=== PATIENT | male | born 1950 | race Caucasian/White ===

== ENCOUNTER → 2018-10-12 07:50 | Outpatient (CLI) | payer MEDICARE, OTHER, SELFPAY ==
[2018-10-12 09:14] LABS: Add Manual Diff / Slide Review NO; Basophils Absolute Auto 0 /uL (0-100); Basophils Percent Auto 0.6 % (0-2); Eosinophils Absolute Auto 200 /uL (0-450); Eosinophils Percent Auto 6.5 % (2-4); Hematocrit 43.4 % (41-53); Hemoglobin 14.8 g/dL (13.5-17.5); Lymphocytes Absolute Auto 1200 /uL (1100-4500); Lymphocytes Percent Auto 36.4 % (25-40); Mean Corpuscular HGB Conc 34.1 % (30-36); Mean Corpuscular Hemoglobin 32.3 PG (26-34); Mean Corpuscular Volume 94.7 fL (80-100); Monocytes Absolute Auto 400 /uL (0-900); Monocytes Percent Auto 11.5 % (3-14); Neutrophils Absolute Auto 1500 /uL (1500-7000); Platelet Count 207 X10^3/uL (150-400); Red Blood Cell Count 4.58 X10^6/uL (4.5-5.9); Red Cell Distribution Width 12.7 % (11.6-14.8); White Blood Cell Count 3.4 X10^3/uL (4.5-11.0)
[2018-10-12 09:37] LABS: Alanine Aminotransferase 49 IU/L (21-72); Albumin 4.3 g/dL (3.5-5.0); Albumin Globulin Ratio 1.5 (1.0-2.8); Alkaline Phosphatase 75 U/L (38-126); Aspartate Aminotransferase 40 IU/L (17-59); BUN Creatinine Ratio 21.4 (6-22); Bilirubin Total 0.7 mg/dL (0.2-1.3); Blood Urea Nitrogen 15 mg/dL (9-20); Calcium 9.5 mg/dL (8.4-10.2); Carbon Dioxide 30 mmol/L (22-32); Chloride 101 mmol/L (98-107); Cholesterol 277 mg/dL (140-199); Estimated Glomerular Filt Rate > 60.0 mL/min (>60); Globulin 2.9 g/dL (1.7-4.1); Glucose 103 mg/dL (80-110); HDL Cholesterol 70 mg/dL (40-60); HEMOLYSIS < 15 (0-50); LDL Cholesterol Calculated 189 mg/dL (<100); Sodium 138 mmol/L (137-145); Total Protein 7.2 g/dL (6.3-8.2); Triglycerides 92 mg/dL (35-150)
[2018-10-12 09:53] LABS: Potassium 5.4 mmol/L (3.4-5.1)
[2018-10-12 10:05] LABS: Prostate Specific Antigen Scrn 0.526 ng/mL (0.1-4.0)
[2018-10-14 14:50] LABS: Fecal Immunochemical Test NOT DETECTED (NOT DETECTED)
== END ==
PROVIDERS: PCP Family Medicine; Visit Provider Family Medicine
DX: Z12.11 Encounter for screening for malignant neoplasm of colon (principal); Z13.1 Encounter for screening for diabetes mellitus; Z12.5 Encounter for screening for malignant neoplasm of prostate; Z13.220 Encounter for screening for lipoid disorders; Z72.0 Tobacco use
CPT/HCPCS: 36415; 80053; 80061; 82274; 85025; G0103

== ENCOUNTER → 2019-04-20 07:20 | Outpatient (CLI) | payer MEDICARE, OTHER, SELFPAY ==
[2019-04-20 08:08] LABS: Alanine Aminotransferase 47 IU/L (21-72); Albumin 4.3 g/dL (3.5-5.0); Albumin Globulin Ratio 1.3 (1.0-2.8); Alkaline Phosphatase 72 U/L (38-126); Aspartate Aminotransferase 44 IU/L (17-59); Bilirubin Total 0.7 mg/dL (0.2-1.3); Blood Urea Nitrogen 15 mg/dL (9-20); Calcium 9.5 mg/dL (8.4-10.2); Carbon Dioxide 31 mmol/L (22-32); Chloride 101 mmol/L (98-107); Cholesterol 190 mg/dL (140-199); Estimated Glomerular Filt Rate > 60.0 mL/min (>60); Globulin 3.3 g/dL (1.7-4.1); Glucose 99 mg/dL (80-110); HDL Cholesterol 66 mg/dL (40-60); HEMOLYSIS < 15 (0-50); LDL Cholesterol Calculated 108 mg/dL (<100); Potassium 4.5 mmol/L (3.4-5.1); Sodium 138 mmol/L (137-145); Total Protein 7.6 g/dL (6.3-8.2); Triglycerides 82 mg/dL (35-150)
== END ==
PROVIDERS: PCP Family Medicine; Visit Provider Family Medicine
DX: E78.5 Hyperlipidemia, unspecified (principal)
CPT/HCPCS: 36415; 80053; 80061

== ENCOUNTER → 2019-07-08 10:21 | Outpatient (CLI) | payer MEDICARE, OTHER, SELFPAY ==
--- NOTE | 2019-07-08 10:23 | DI.RAD.S_ITS ---
PROCEDURE: XR LUMBAR SPINE MIN 4V INDICATIONS: Fall off ladder, lumbar spinal pain TECHNIQUE: 5 views of the lumbar spine were acquired. COMPARISON: None. FINDINGS: Bones: 5 nonrib-bearing vertebrae are present. There is abnormal bony alignment, with grade 2 anterolisthesis of L5 on S1, chronicity uncertain due to absence of comparison films. No vertebral body compression fractures. No suspicious bony lesions. Note is made of moderate degenerative disc disease and facet osteoarthritis along the lumbosacral spine most prominent at L4-5 and especially L5-S1. Soft tissues: Overlying bowel gas pattern is normal. No suspicious soft tissue calcifications. Oblique images: No pars defects. IMPRESSION: The grade 2 anterolisthesis of L5 on S1 statistically is most likely chronic, and is associated with moderately severe degenerative disc disease and facet osteoarthritis. Radiographically this is considered most likely chronic, and due to ligamentous laxity. No fracture is found. Dictated by: Randy Junior M.D. on 07/08/2019 at 11:29 Approved by: Randy Junior M.D. on 07/08/2019 at 11:31
== END ==
PROVIDERS: PCP Family Medicine; Visit Provider Nurse Practitioner
DX: M54.5 Low back pain (principal); M43.17 Spondylolisthesis, lumbosacral region; M51.36 Other intervertebral disc degeneration, lumbar region; M51.37 Other intervertebral disc degeneration, lumbosacral region; M47.816 Spondylosis without myelopathy or radiculopathy, lumbar region; M47.817 Spondylosis without myelopathy or radiculopathy, lumbosacral region
CPT/HCPCS: 72110

== ENCOUNTER → 2020-06-20 14:17 | Outpatient (CLI) | payer MEDICARE, OTHER, SELFPAY ==
[2020-06-20 15:41] LABS: Add Manual Diff / Slide Review NO; Basophils Absolute Auto 0 /uL (0-100); Basophils Percent Auto 0.7 % (0-2); Eosinophils Absolute Auto 300 /uL (0-450); Eosinophils Percent Auto 7.8 % (2-4); Hematocrit 42.2 % (41-53); Hemoglobin 14.3 g/dL (13.5-17.5); Lymphocytes Absolute Auto 1500 /uL (1100-4500); Lymphocytes Percent Auto 35.7 % (25-40); Mean Corpuscular HGB Conc 33.8 % (30-36); Mean Corpuscular Hemoglobin 32.3 PG (26-34); Mean Corpuscular Volume 95.5 fL (80-100); Monocytes Absolute Auto 400 /uL (0-900); Monocytes Percent Auto 8.5 % (3-14); Neutrophils Absolute Auto 2000 /uL (1500-7000); Neutrophils Percent Auto 47.3 % (50-75); Platelet Count 194 X10^3/uL (150-400); Red Blood Cell Count 4.42 X10^6/uL (4.5-5.9); Red Cell Distribution Width 12.8 % (11.6-14.8); White Blood Cell Count 4.3 X10^3/uL (4.5-11.0)
[2020-06-20 16:12] LABS: Alanine Aminotransferase 55 IU/L (<50); Albumin 4.1 g/dL (3.5-5.0); Albumin Globulin Ratio 1.4 (1.0-2.8); Alkaline Phosphatase 91 U/L (38-126); Aspartate Aminotransferase 45 IU/L (17-59); BUN Creatinine Ratio 26.1 (6-22); Bilirubin Total 0.6 mg/dL (0.2-1.3); Blood Urea Nitrogen 18 mg/dL (9-20); Calcium 9.4 mg/dL (8.4-10.2); Carbon Dioxide 33 mmol/L (22-32); Chloride 104 mmol/L (98-107); Estimated Glomerular Filt Rate > 60.0 mL/min (>60); Globulin 2.9 g/dL (1.7-4.1); Glucose 62 mg/dL (80-110); HEMOLYSIS < 15 (0-50); Potassium 4.6 mmol/L (3.4-5.1); Sodium 140 mmol/L (137-145)
== END ==
PROVIDERS: PCP Family Medicine; Referring Provider Family Medicine; Visit Provider Family Medicine
DX: R13.10 Dysphagia, unspecified (principal)
CPT/HCPCS: 36415; 80053; 85025

== ENCOUNTER → 2020-06-30 12:30 | Outpatient (CLI) | payer MEDICARE, OTHER, SELFPAY ==
--- NOTE | 2020-06-30 12:31 | DI.RAD.S_ITS ---
PROCEDURE: FL BARIUM SWALLOW INDICATIONS: trouble swallowing, smoker for >50 years COMPARISON: [facility], CR, XR LUMBAR SPINE MIN 4V, 07/08/2019, 10:26. FINDINGS: Function: There is moderate esophageal dysmotility. Mild gastroesophageal reflux. There is normal transit of a calibrated barium tablet through the esophagus into the stomach. Morphology: Air-contrast images demonstrate normal mucosal morphology. Single contrast views show no esophageal strictures, extrinsic mass effects, or diverticula. Limited images of the stomach demonstrate normal appearance. IMPRESSION: 1. Moderate esophageal dysmotility. 2. Mild gastroesophageal reflux. Dictated by: Josie Sheridan M.D. on 06/30/2020 at 13:24 Approved by: Josie Sheridan M.D. on 06/30/2020 at 13:25
== END ==
PROVIDERS: PCP Family Medicine; Referring Provider Family Medicine; Visit Provider Family Medicine
DX: R13.10 Dysphagia, unspecified (principal); K22.4 Dyskinesia of esophagus; K21.9 Gastro-esophageal reflux disease without esophagitis; F17.200 Nicotine dependence, unspecified, uncomplicated
CPT/HCPCS: 74220

== ENCOUNTER → 2021-11-14 07:10 | Outpatient (CLI) | payer MEDICARE, OTHER, SELFPAY ==
[2021-11-14 07:57] LABS: Add Manual Diff / Slide Review NO; Basophils Absolute Auto 0 /uL (0-100); Basophils Percent Auto 0.9 % (0-2); Eosinophils Absolute Auto 400 /uL (0-450); Eosinophils Percent Auto 10.1 % (2-4); Hematocrit 42.3 % (41-53); Hemoglobin 14.7 g/dL (13.5-17.5); Lymphocytes Absolute Auto 1200 /uL (1100-4500); Lymphocytes Percent Auto 29.8 % (25-40); Mean Corpuscular HGB Conc 34.8 % (30-36); Mean Corpuscular Hemoglobin 32.6 PG (26-34); Mean Corpuscular Volume 93.7 fL (80-100); Monocytes Absolute Auto 400 /uL (0-900); Neutrophils Absolute Auto 2000 /uL (1500-7000); Neutrophils Percent Auto 50.2 % (50-75); Platelet Count 189 X10^3/uL (150-400); Red Blood Cell Count 4.52 X10^6/uL (4.5-5.9)
[2021-11-14 08:19] LABS: Alanine Aminotransferase 31 IU/L (<50); Albumin 4.4 g/dL (3.5-5.0); Albumin Globulin Ratio 1.5 (1.0-2.8); Alkaline Phosphatase 72 U/L (38-126); Aspartate Aminotransferase 35 IU/L (17-59); BUN Creatinine Ratio 22.7 (6-22); Bilirubin Total 0.8 mg/dL (0.2-1.3); Blood Urea Nitrogen 17 mg/dL (9-20); Calcium 9.6 mg/dL (8.4-10.2); Carbon Dioxide 33 mmol/L (22-32); Chloride 104 mmol/L (98-107); Estimated Glomerular Filt Rate > 60 mL/min (>60); Glucose 105 mg/dL (80-110); HEMOLYSIS < 15 (0-50); Sodium 139 mmol/L (137-145); Total Protein 7.4 g/dL (6.3-8.2)
== END ==
PROVIDERS: PCP Family Medicine; Referring Provider Family Medicine; Visit Provider Family Medicine
DX: E78.5 Hyperlipidemia, unspecified (principal); R13.10 Dysphagia, unspecified
CPT/HCPCS: 36415; 80053; 85025

== ENCOUNTER → 2022-05-29 15:21 | Outpatient (CLI) | payer MEDICARE, OTHER, SELFPAY ==
--- NOTE | 2022-05-29 15:24 | DI.US.S_ITS ---
PROCEDURE: US ABD AORTA ANEURYSM SCREEN INDICATIONS: AAA SCREEN TECHNIQUE: Real time scanning was performed of the aorta and iliac arteries, with image documentation. COMPARISON: [facility], , ABDOMEN LIMITED, 09/15/2017, 8:40. FINDINGS: Aorta: Proximal aortic diameter measures 2.1 cm. Mid-aorta measures 1.9 cm. Distal aortic diameter is 1.7 cm. Iliac arteries: Right common iliac artery measures 1.2 cm. Left common iliac artery measures 1.2 cm. IMPRESSION: Negative for aneurysm. Dictated by: Jonn Rico M.D. on 05/29/2022 at 15:29 Approved by: Jonn Rico M.D. on 05/29/2022 at 15:30
== END ==
PROVIDERS: PCP Family Medicine; Referring Provider Family Medicine; Visit Provider Family Medicine
DX: Z72.0 Tobacco use (principal); Z13.6 Encounter for screening for cardiovascular disorders
CPT/HCPCS: 76706; C9803

== ENCOUNTER 2022-05-30 14:16 | Day surgery (SDC) | payer MEDICARE, OTHER, SELFPAY ==
--- NOTE | 2022-05-30 | PATH_ITS ---
[facility] Accession Number: [id number] . 01 Material submitted: . PART A: gastrointestinal site - ANTRUM BIOPSY PART B: esophagus, E-G Junction - GE JUNCTION BIOPSY . 01 Diagnosis: A. Stomach, Antrum, Biopsy: Antral mucosa with mild chronic gastritis. Negative for Helicobacter by immunohistochemistry. Negative for intestinal metaplasia. Negative for dysplasia and malignancy. . B. Gastroesophageal Junction, Biopsy: Squamocolumnar junctional mucosa with specialized intestinal metaplasia, consistent with Mccurdy's esophagus. Negative for dysplasia and malignancy. MRV 06/04/2022 1247 Local . 01 Electronically signed: . Ct Ferrari MD, Pathologist NPI- [id number] . 01 Gross description: . Part A: ANTRUM BIOPSY: Received in formalin are 4 fragment(s) of brock, soft tissue measuring 0.2 x 0.2 x 0.2 cm to 0.4 x 0.2 x 0.2 cm submitted entirely in 1 cassette(s) Part B: GE JUNCTION BIOPSY: Received in formalin are 4 fragment(s) of brock, soft tissue measuring 0.1 x 0.1 x 0.1 cm to 0.3 x 0.2 x 0.2 cm submitted entirely in 1 cassette(s) /DAILY 05/31/2022 1941 Local . 01 Microscopic: . A. An immunohistochemical stain was performed to evaluate for Helicobacter organisms and is negative. The control stain showed appropriate reactivity. . * This test was developed and its performance characteristics determined by [facility]. It has not been cleared or approved by the U.S. Food and Drug Administration. The FDA has determined that such clearance or approval is not necessary. This test is used for clinical purposes. It should not be regarded as investigational or for research. . 01 Pathologist provided ICD-10: R13.10, K22.70 . 01 CPT . 980192, 400488, I56772 Specimen Comment: A courtesy copy of this report has been sent to [phone] Performed at: [address] [id number] MD Rufino Solano MD Phone: [phone]
[2022-05-30 14:54] VITALS: BP 153/84; PULSE 82; RESP 18; TEMP 36.5; O2SAT 99; BMI 21.9
[2022-05-30] MEDS: LACTATED RINGERS 1,000 ML 200 ML IV (15:06)
--- NOTE | 2022-05-30 16:17 | PM.HP.1 ---
History of Present Illness History of Present Illness Date Patient Seen: 05/30/22 Time Patient Seen: 16:17 Chief complaint: SDC Narrative: Cecil is a 72-year-old man with dysphagia. He is here for his EGD today. His symptoms are the same as they were when I saw him several months ago in the office. 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 Sister Cancer Social History: household members spouse lives independently Yes Tobacco & Substance use: Smoking Status Current every day smoker alcohol intake current alcohol intake frequency 0-2 drinks per day Substance Use Type does not use Meds Home Medications and Allergies Home Medications Medication Instructions Recorded Confirmed Type atorvastatin 20 mg tablet 20 mg PO BEDTIME #90 tabs 06/14/21 05/30/22 Rx Allergies Allergy/AdvReac Type Severity Reaction Status Date / Time No Known Allergies Allergy Uncoded 05/30/22 14:49 Exam Vital Signs (past 8 hours): - 05/30/22 14:54 Temperature 97.7 F Pulse Rate 82 Respiratory Rate 18 Blood Pressure 153/84 H Pulse Oximetry 99 Oxygen Delivery Method Room Air Oxygen Delivery Method Room Air Const Nutritional Appearance: thin Resp Effort & Inspection: normal respiratory effort Assessment & Plan Assessment and plan (1) Dysphagia: Status: Acute Plan Plan for EGD with biopsy or possible balloon dilation. He understands the risks and wishes to proceed. Time Spent With Patient Critical Care time: I spent a total of [] minutes of critical care time on this patient's care today; this time is exclusive of procedural time.
--- NOTE | 2022-05-30 16:35 | PM.OP.EGD ---
Operative Date/Time/Diagnoses Date of procedure: 05/30/22 Time of procedure: 16:35 Pre-op diagnosis: Dysphagia Post-op diagnosis: same Procedure & Clinicians Study performed: Esophagogastroduodenoscopy Same procedure as scheduled: Yes Surgeon: Leon Jj Procedure Notes Procedure in detail: Surgeon: Leon Jj MD Anesthesia: Dr. Waite A timeout was performed. A bite blocked was placed. The patient was positioned in the left lateral decubitus position. Anesthesia was administered. The endoscope was inserted through the bite block and passed through the esophagus and stomach and into the duodenum. The duodenal mucosa appeared normal. The scope was withdrawn into the duodenal bulb and no abnormalities were noted. The scope was withdrawn into the stomach. The antrum demonstrated mild antritis and random biopsies were taken. The rest of the stomach was normal. The scope was retroflexed and a small hiatal hernia was noted. The scope was withdrawn into the esophagus and the Z-line was inspected the mucosa at the Z-line appeared somewhat irregular and biopsies were taken.. The remainder of the esophagus was normal. The scope was withdrawn. The patient was awakened and brought to recovery. Sedation time: 10 Findings: Irregular mucosa at the Z-line and antritis Post-procedure Recommendations: Will call with biopsy results Disposition: PACU
[2022-05-30 16:41] VITALS: BP 136/72; PULSE 72; PULSE 89; RESP 16; RESP 24; TEMP 36.5; O2SAT 98
[2022-05-30 16:44] VITALS: BP 135/72; PULSE 77; RESP 23; O2SAT 98
[2022-05-30 16:56] VITALS: BP 152/92; PULSE 76; RESP 18; TEMP 36.5; O2SAT 98
== END 2022-05-30 17:14 | disposition home or self-care (01) ==
PROVIDERS: PCP Family Medicine; Referring Provider Surgery; Visit Provider Surgery
PROC: 0DJ08ZZ Inspection of Upper Intestinal Tract, Via Natural or Artificial Opening Endoscopic (ICD-10-PCS; CPT 43235; principal; 2022-05-30 15:45)
DX: R13.10 Dysphagia, unspecified (principal); K29.50 Unspecified chronic gastritis without bleeding; K31.A0 Gastric intestinal metaplasia, unspecified
CPT/HCPCS: 43239; J2704; J3010

== ENCOUNTER 2022-09-05 06:50 | Day surgery (SDC) | payer MEDICARE, OTHER, SELFPAY ==
[2022-09-05 07:35] VITALS: BP 143/80; PULSE 76; RESP 16; TEMP 36; O2SAT 99; BMI 60.0
[2022-09-05] MEDS: LACTATED RINGERS 1,000 ML 42 ML IV (07:45)
--- NOTE | 2022-09-05 08:34 | PM.HP.1 ---
History of Present Illness History of Present Illness Date Patient Seen: 09/05/22 Time Patient Seen: 08:34 Chief complaint: SDC Narrative: Cecil is here for his esophageal dilation. Still having dysphagia. See prior office notes for details. 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 Sister Cancer Social History: household members spouse lives independently Yes Tobacco & Substance use: Smoking Status Current every day smoker alcohol intake current alcohol intake frequency 0-2 drinks per day Substance Use Type does not use Meds Home Medications and Allergies Home Medications Medication Instructions Recorded Confirmed Type atorvastatin 20 mg tablet 20 mg PO BEDTIME #90 tabs 06/14/21 09/05/22 Rx Allergies Allergy/AdvReac Type Severity Reaction Status Date / Time No Known Allergies Allergy Uncoded 09/05/22 07:28 Exam Vital Signs (past 8 hours): - 09/05/22 07:35 Temperature 96.8 F L Pulse Rate 76 Respiratory Rate 16 Blood Pressure 143/80 H Pulse Oximetry 99 Oxygen Delivery Method Room Air Oxygen Delivery Method Room Air Const General: No acute distress Resp Effort & Inspection: normal respiratory effort Assessment & Plan Assessment and plan (1) Dysphagia: Status: Acute Plan Osmel is here for his esophageal dilation. We reviewed the risks and benefits and he would like to proceed. Time Spent With Patient Critical Care time: I spent a total of [] minutes of critical care time on this patient's care today; this time is exclusive of procedural time.
[2022-09-05 08:47] VITALS: BMI 22.5
--- NOTE | 2022-09-05 08:58 | P.OP.EGD_ITS ---
Operative Date/Time/Diagnoses Date of procedure: 09/05/22 Time of procedure: 08:58 Pre-op diagnosis: Dysphagia Post-op diagnosis: same Procedure & Clinicians Study performed: Esophagogastroduodenoscopy Same procedure as scheduled: Yes Surgeon: Leon Jj Procedure Notes Procedure in detail: Surgeon: Leon Jj MD Anesthesia: Zenon Bacon CRNA A timeout was performed. A bite blocked was placed. The patient was positioned in the left lateral decubitus position. Anesthesia was administered. The endoscope was inserted through the bite block and passed through the esophagus and into the stomach and no abnormalities were seen. The rest of the stomach was normal. The scope was retroflexed and no abnormalities were seen. The scope was withdrawn into the esophagus and the moderate stricture was seen at the distal esophagus. Next, the balloon was inserted into the distal esophageal stricture. We inflated the balloon to 15 mm for greater than 30 seconds and deflated it. We then inflated the balloon to 16.5 mm for greater than 30 seconds and then deflated it again. Finally, we inflated to the full 18 mm for 60 seconds. The balloon was deflated and removed. There were 3 small tears in the narrowest part of the GE junction with a small amount blood visible. The r emainder of the esophagus was normal. The scope was withdrawn. The patient was awakened and brought to recovery. Sedation time: 10 minutes Findings: Moderate distal esophageal stricture Post-procedure Disposition: PACU
[2022-09-05 09:03] VITALS: BP 131/86; PULSE 86; RESP 20; TEMP 36.4; O2SAT 92
[2022-09-05 09:09] VITALS: BP 132/84; PULSE 85; RESP 16; O2SAT 95
== END 2022-09-05 09:44 | disposition home or self-care (01) ==
PROVIDERS: PCP Family Medicine; Referring Provider Surgery; Visit Provider Surgery
PROC: 0DJ08ZZ Inspection of Upper Intestinal Tract, Via Natural or Artificial Opening Endoscopic (ICD-10-PCS; CPT 43235; principal; 2022-09-05 08:15)
DX: R13.10 Dysphagia, unspecified (principal); K22.2 Esophageal obstruction; Y83.8 Other surgical procedures as the cause of abnormal reaction of the patient, or of later complication, without mention of misadventure at the time of the procedure
CPT/HCPCS: 43249; 43245

== ENCOUNTER → 2022-09-18 14:26 | Outpatient (CLI) | payer MEDICARE, OTHER, SELFPAY ==
--- NOTE | 2022-09-18 14:28 | DI.RAD.S_ITS ---
PROCEDURE: XR SHOULDER RT MIN 2V INDICATIONS: Shoulder pain TECHNIQUE: 3 views of the shoulder were acquired. COMPARISON: None. FINDINGS: Bones: Moderate degenerative changes of the acromioclavicular and glenohumeral joints. No displaced fracture. No dislocation. Soft tissues: No suspicious calcifications. IMPRESSION: Moderate degenerative changes. No acute radiographic abnormality. If there is high concern for further derangement, consider MRI evaluation. Dictated by: Samir Ortiz M.D. on 09/18/2022 at 16:27 Approved by: Samir Ortiz M.D. on 09/18/2022 at 16:28
== END ==
PROVIDERS: PCP Family Medicine; Referring Provider Nurse Practitioner Family; Visit Provider Nurse Practitioner Family
DX: S46.911A Strain of unspecified muscle, fascia and tendon at shoulder and upper arm level, right arm, initial encounter (principal); X58.XXXA Exposure to other specified factors, initial encounter
CPT/HCPCS: 73030

== ENCOUNTER → 2022-11-19 08:01 | Outpatient (CLI) | payer MEDICARE, OTHER, SELFPAY ==
[2022-11-19 08:56] LABS: Add Manual Diff / Slide Review NO; Basophils Absolute Auto 0 /uL (0-100); Basophils Percent Auto 0.4 % (0-2); Eosinophils Absolute Auto 400 /uL (0-450); Eosinophils Percent Auto 9.9 % (2-4); Hematocrit 42.3 % (41-53); Hemoglobin 14.5 g/dL (13.5-17.5); Lymphocytes Absolute Auto 1200 /uL (1100-4500); Lymphocytes Percent Auto 29.9 % (25-40); Mean Corpuscular HGB Conc 34.2 % (30-36); Mean Corpuscular Hemoglobin 31.7 PG (26-34); Mean Corpuscular Volume 92.7 fL (80-100); Monocytes Absolute Auto 400 /uL (0-900); Monocytes Percent Auto 10.1 % (3-14); Neutrophils Absolute Auto 2000 /uL (1500-7000); Neutrophils Percent Auto 49.7 % (50-75); Platelet Count 188 X10^3/uL (150-400); Red Blood Cell Count 4.56 X10^6/uL (4.5-5.9); Red Cell Distribution Width 13.9 % (11.6-14.8); White Blood Cell Count 4.1 X10^3/uL (4.5-11.0)
[2022-11-19 09:33] LABS: Alanine Aminotransferase 32 IU/L (<50); Albumin Globulin Ratio 1.3 (1.0-2.8); Alkaline Phosphatase 69 U/L (38-126); Aspartate Aminotransferase 34 IU/L (17-59); BUN Creatinine Ratio 26.5 (6-22); Bilirubin Total 0.8 mg/dL (0.2-1.3); Blood Urea Nitrogen 18 mg/dL (9-20); Calcium 9.2 mg/dL (8.4-10.2); Carbon Dioxide 33 mmol/L (22-32); Chloride 100 mmol/L (98-107); Cholesterol 249 mg/dL (140-199); Estimated Glomerular Filt Rate > 60 mL/min (>60); Glucose 100 mg/dL (80-110); HDL Cholesterol 61 mg/dL (40-60); HEMOLYSIS < 15 (0-50); LDL Cholesterol Calculated 155 mg/dL (<100); Potassium 5.1 mmol/L (3.4-5.1); Sodium 135 mmol/L (137-145); Triglycerides 166 mg/dL (35-150)
== END ==
PROVIDERS: PCP Family Medicine; Referring Provider Family Medicine; Visit Provider Family Medicine
DX: K22.70 Barrett's esophagus without dysplasia (principal); E78.5 Hyperlipidemia, unspecified
CPT/HCPCS: 36415; 80053; 80061; 85025

== ENCOUNTER → 2022-12-07 09:14 | Outpatient (CLI) | payer MEDICARE, OTHER, SELFPAY ==
--- NOTE | 2022-12-07 09:17 | DI.MRI.S_ITS ---
PROCEDURE: MR SHOULDER RT WO CON INDICATIONS: R shoulder pain TECHNIQUE: Noncontrast oblique coronal T2 fast spin echo with fat saturation, oblique sagittal T1 spin echo and T2 fast spin echo with fat saturation, axial T1 spin echo and T2 fast spin echo with fat saturation through the shoulder. COMPARISON: [facility], CR, XR SHOULDER RT MIN 2V, 09/18/2022, 14:30. FINDINGS: Image quality: There are motion artifacts. Rotator cuff: There is full-thickness tear of the supraspinatus tendon with tendon retraction. There is mild supraspinatus muscle atrophy. There is mild tendinosis of the infraspinatus, and subscapularis tendons. No full-thickness tendon tear or muscle atrophy. Bones and bursae: No bone marrow contusions or fractures. Moderate glenohumeral joint degeneration and mild acromioclavicular joint degeneration. The acromion demonstrates conventional anatomy, without an os acromiale. There is moderate glenohumeral joint effusion. Capsule and soft tissues: Mild degenerative fraying in anterior superior labrum. The long head of the biceps tendon demonstrates normal location and morphology. The rotator interval appears normal, without fibrosis. The coracohumeral ligament is normal in thickness. IMPRESSION: 1. Full-thickness tear of the supraspinatus tendon with tendon retraction and mild supraspinatus muscle atrophy. 2. Moderate tendinosis of the infraspinatus and subscapularis tendons. 3. Moderate glenohumeral joint effusion. 4. Moderate glenohumeral joint degeneration and mild acromioclavicular joint degeneration. Dictated by: Josie Sheridan M.D. on 12/10/2022 at 13:17 Approved by: Josie Sheridan M.D. on 12/10/2022 at 13:24
== END ==
PROVIDERS: PCP Family Medicine; Referring Provider Family Medicine; Visit Provider Family Medicine
DX: M75.101 Unspecified rotator cuff tear or rupture of right shoulder, not specified as traumatic (principal); M67.80 Other specified disorders of synovium and tendon, unspecified site; M25.411 Effusion, right shoulder
CPT/HCPCS: 73221

== ENCOUNTER → 2023-04-16 08:03 | Outpatient (CLI) | payer MEDICARE, OTHER, SELFPAY ==
[2023-04-16 10:28] LABS: TSH w/ Reflex to FT4 1.79 uIU/mL (0.47-4.68)
[2023-04-23 21:21] LABS: Percent Free Testosterone 1.69 % (1.50-4.20); Testosterone Free 5.15 ng/dL (5.00-21.00); Testosterone Total 304.6 ng/dL (264.0-916.0)
== END ==
PROVIDERS: Visit Provider Student in an Organized Health Care Education/Training Program
DX: R53.83 Other fatigue (principal)
CPT/HCPCS: 36415; 84402; 84403; 84443

== ENCOUNTER → 2023-05-19 08:58 | Outpatient (CLI) | payer MEDICARE, OTHER, SELFPAY ==
--- NOTE | 2023-05-19 09:02 | DI.RAD.S_ITS ---
PROCEDURE: FL BARIUM SWALLOW INDICATIONS: DYSPHAGIA COMPARISON: [facility], , SD BARIUM SWALLOW, 06/30/2020, 13:53. FINDINGS: Function: The calibrated barium tablet is stuck at the epiglottis with initial swallow. The tablet is cleared by refluxing into the mouth and tilting the head back with a forceful swallow. There is normal transit of a calibrated barium tablet through the esophagus into the stomach. There is mild esophageal dysmotility most pronounced in the prone position at the upper esophagus. No elicited gastroesophageal reflux with provocative maneuvers. Morphology: Air-contrast images demonstrate normal mucosal morphology. Single contrast views show no esophageal strictures, extrinsic mass effects, or diverticula. Limited images of the stomach demonstrate normal appearance. Moderate degenerative changes in the cervical spine. IMPRESSION: Barium tablet become stuck at the epiglottis. The tablet was cleared with refluxing into the mouth and a forceful swallow. No diverticulum. Mild esophageal dysmotility. No reflux demonstrated. Recommend speech pathologist consultation. Dictated by: Herminio Avilez M.D. on 05/19/2023 at 10:43 Approved by: Herminio Avilez M.D. on 05/19/2023 at 10:49
== END ==
PROVIDERS: Referring Provider Otolaryngology; Visit Provider Otolaryngology
DX: R13.10 Dysphagia, unspecified (principal); K22.4 Dyskinesia of esophagus
CPT/HCPCS: 74220

== ENCOUNTER → 2023-09-10 09:36 | Outpatient (CLI) | payer MEDICARE, OTHER, SELFPAY ==
--- NOTE | 2023-09-10 09:37 | DI.RAD.S_ITS ---
PROCEDURE: [place] BARIUM SWALLOW W SPEECH INDICATIONS: swallowing difficulty COMPARISON: TECHNIQUE: Examination was conducted in conjunction with speech pathology per standard protocol. In the lateral projection, filming was performed of the patient swallowing. AP projection filming may also be performed with patient swallowing. COMPARISON: [facility], , [place] BARIUM SWALLOW, 05/19/2023, 11:13. FINDINGS: Function: See speech pathology note Morphology: Irregular contour of the superior portion of the esophagus is visualized. The distal /inferior esophagus is not evaluated. 1-2 cm area of contrast retention also seen in the posterior esophagus, incompletely evaluated on this modified barium swallow. It could represent a Zenker diverticulum. Fluoroscopy time: 2.9 minutes. 13 images saved. IMPRESSION: 1. Irregular contour of the partially visualized superior esophagus with a possible Zenker diverticulum; recommend esophageal endoscopy to further evaluate 2. See speech pathology note for detail evaluation for aspiration/penetration Dictated by: Grant Munoz M.D. on 09/10/2023 at 15:39 Approved by: Grant Munoz M.D. on 09/10/2023 at 15:46 None. None.
--- NOTE | 2023-09-17 16:00 | ST.SWALLOW ---
Visit Care Team Role Provider Type Loree Pozo MD Attending Provider Physician Family Provider Primary Care Provider Referring Provider Specialty: Family Practice Obstetrics Address: [address] [place] [address], [id number] Email: [email or web address] Modified Barium Swallow Study BLOOM CONVEYOR OPERATOR Modified Barium Swallow Study Start: 09/10/23 14:23 Freq: Status: Active Protocol: Document 09/10/23 15:01 LNK (Rec: 09/17/23 15:59 LNK [id number]) Modified Barium Swallow Study Total Time Visit Start Time 10:00 Visit Stop Time 01:45 Total Visit Minutes [address] Pozo Reason for Referral dysphagia Setting Setting Acute Care Patient Information Identification Type Name,Date of Patient History Pt seen for a Modified Barium Swallow Study secondary to difficulty with swallowing. Pt reports many years of swallowing difficulty. He has been diagnosed with Mccurdy's esophagus, GERD and esophageal stricture in the past. Pt has had EGDs and barium swallow assessments since 2019. Subjective Observations Pt was seated in the fluoroscopy chair with directios amnd procedures reviewed. Pt indicated he understood and agreed to proceed. Patient Positioning Position View Lat-A/P Imaging Lateral View Textures Administered Trials Presented Thin Liquid via Spoon (IDDSI 0 ),Thin Liquid via Cup (IDDSI 0 ),Mildly Thick Liquid via Spoon (IDDSI 2),Mildly Thick Liquid via Cup (IDDSI 2), Extremely Thick Liquid via Spoon (IDDSI 4),Regular (IDDSI 7) Barium Tablet Yes The IDDSI Framework Protocol: IDDSI.1 Oral Impairment Source: The Modified Barium Swallow Impairment Profile (MBSImP??) Lip Closure Escape progressing to mid-chin Tongue Control During Bolus Hold Cohesive bolus between tongue to palatal seal Bolus Preparation/Mastication Slow prolonged chewing/mashing with complete re-collection Bolus Transport/Lingual Motion Repetitive/disorganized tongue motion Oral Residue Residue collection on oral structures Location Floor of mouth,Palate,Tongue Initiation of Pharyngeal Swallow Bolus head in valleculae Additional Oral Impairment Observations Pt had upper denture but did not wear lower denture. OME and DKS noted to be grossly WFL. Mastication prolonged with incomplete bolus formation, likely due to missing lower denture. Pharyngeal Impairment Source: The Modified Barium Swallow Impairment Profile (MBSImP??) Soft Palate Elevation No bolus between soft palate & pharyngeal wall Laryngeal Elevation Part.sup.move.thyroid cart/ part.approx.arytenoids to epiglot.petiole Anterior Hyoid Excursion Partial anterior movement Epiglottic Movement No inversion Laryngeal Vestibular Closure Complete; no air/contrast in laryngeal vestibule Pharyngeal Stripping Wave Present - diminished Pharyngoesophageal Segment Opening Minimal distension/minimal duration; marked obstruction of flow Tongue Base Retraction Wide column of contrast/air betwn tongue base & post. pharyngeal wall Pharyngeal Residue Majority of contrast within/on pharyngeal structures Location Diffuse (>3 areas) Additional Pharyngeal Impairment *Significant base of tongue Observations weakness *Reduced hyolaryngeal elevation *No epiglottic inversion *Laryngeal vestibule seal incomplete with laryngeal penetration with sequential swallows. *NO tracheal aspiration observed *Minimal opening of PES - impedes bolus flow into esophagus - 5-10 swallow attempts to clear teaspoon sized bolus (across all trials) Lateral esophageal observations: *Small Zenkers diverticulum ( (maybe 2 more tiny diverticula?) *Large CP bar - interferes with bolus flow *Soft tissue irregularities throughout upper esophagus *significant narrowing/ blockage of bolus flow proximal to the CP bar A/P View Textures Administered Trials Presented Thin Liquid via Cup (IDDSI 0) The IDDSI Framework Protocol: IDDSI.1 A/P View Observations Pharyngeal Contraction Unilateral bulging Esophageal Clearance Upright Position Esophageal retention w/ retrograde flow thru pharyngoesoph segment Esophageal Function WFL,Slowed Clearing,Poor Motility,Reverse Peristalsis, Stasis,Narrowing Additional A-P Observations Thin liquid and tablet noted to clear esophagus in timely manner. Pt put head back when swallowing tablet (he reports that movement helps with pills). Clinical Impressions Dysphagia Type Oral,Pharyngeal,Esophageal Findings Mild-moderate oropharynhgeal dysphagia with severe esophageal dysphagia. Soft tissue irregularities noted in the upper esophagus impeding and interfering with passage of boluses through upper esophagus. Recommend GI referral for further evaluation. Patient Appropriate for Therapy No: GI referral recommended Recommendations Diet Liquids Order Thin (IDDSI 0) Diet Order Pureed (IDDSI 4) Medication Recommendation Crushed in Carrier Additional Dietary Needs Reminders to Use Strategies Aspiration Precautions Recommended Precautions Upright at 90 Degrees, Alternate Liquids/Solids, Frequent Rest Periods,Small Bites/Sips
== END ==
PROVIDERS: Family Provider Student in an Organized Health Care Education/Training Program; PCP Student in an Organized Health Care Education/Training Program; Referring Provider Student in an Organized Health Care Education/Training Program; Visit Provider Student in an Organized Health Care Education/Training Program
DX: R13.10 Dysphagia, unspecified (principal)
CPT/HCPCS: 74230; 92611

== ENCOUNTER 2024-02-09 10:30 | Outpatient (RCR) | payer MEDICARE, OTHER, SELFPAY ==
--- NOTE | 2023-08-18 13:21 | ST.OPIE ---
Visit Care Team Role Provider Type Loree Pozo MD Attending Provider Physician Family Provider Primary Care Provider Referring Provider Specialty: Family Practice Obstetrics Address: [address] [place] [address], [id number] Email: [email or web address] Speech-Language Pathology Initial Evaluation [employer] Clinical Swallow Evaluation Start: 08/18/23 10:16 Freq: Status: Active Protocol: Document 08/18/23 10:17 MA (Rec: 08/18/23 10:20 MA [id number]) Clinical Swallow Evaluation Session Time Visit Start Time 09:00 Visit Stop Time 09:45 Total Visit Minutes 45 Visit Information Visit Number Initial Evaluation Plan of Care Dates 08/18/23-11/16/23 Insurance Information Medicare Referral Referring Provider Dr. Loree Pozo Reason for Referral Dyskinesia Esophagus; swallow trouble Setting Assessment Location Outpatient Care Visit Type Note Type Initial evaluation Next Note Type Next Note Type Treatment Note Patient Information Identification Type Name History Pt is a 73 year old male seen this date for dysphagia evaluation. He report swallowing issue has been going on for years, specifically feeling like food gets stuck in this throat. He has had 2 barium swallow tests done, 06/30/20 and . Results/impressions from his most recent are as follows : FINDINGS: Function: The calibrated barium tablet is stuck at the epiglottis with initial swallow. The tablet is cleared by refluxing into the mouth and tilting the head back with a forceful swallow. There is normal transit of a calibrated barium tablet through the esophagus into the stomach. There is mild esophageal dysmotility most pronounced in the prone position at the upper esophagus. No elicited gastroesophageal reflux with provocative maneuvers. Morphology: Air-contrast images demonstrate normal mucosal morphology. Single contrast views show no esophageal strictures, extrinsic mass effects, or diverticula. Limited images of the stomach demonstrate normal appearance. Moderate degenerative changes in the cervical spine. IMPRESSION: Barium tablet become stuck at the epiglottis. The tablet was cleared with refluxing into the mouth and a forceful swallow. No diverticulum. Mild esophageal dysmotility. No reflux demonstrated. Recommend speech pathologist consultation. He denies any significant past medical history. He lives at home with his . Subjective Observations Pt awake, alert and Ox3. He reports swallowing difficulties have been going on for years with the feeling of food getting stuck in his throat. He says he has most difficulties with breads/meats and can usually cough them up if he is having trouble and has not had any significant choking episodes. He reports he has had about 15 pound weight loss over the past few years. He reports he had his throat dilated in the beginning of 2022, however states it did not work. He reports he consumes regular solids at home, however makes sure he takes small bites and has liquid near by to assist with intake. Reported by Patient/Caregiver Pain/Discomfort No Other Symptoms Difficulty swallowing solids, Food gets stuck,Weight loss Current Diet Regular (IDDSI 7) Baseline Feeding Method Independent in self-feeding The IDDSI Framework Protocol: IDDSI.1 Objective Assessment Mental Status Alert,Responsive,Cooperative Oral Integrity WFL Dentition Upper dentures/partials,Lower dentures/partials Lip Function Within normal limits Pucker Within normal limits Alternating Pucker/Lip Retraction Within normal limits Observations of Tongue at Rest Within normal limits Tongue Protrusion Within normal limits Jaw Function Within normal limits Observation of Jaw at Rest Within normal limits Jaw Opening Within normal limits Jaw Closing Within normal limits Food and Liquid Trials Position During Assessment Upright (90 degrees) Liquids Trialed Thin (IDDSI 0) Solid Trials Soft & Bite-sized (IDDSI 6), Regular (IDDSI 7) Administration Type Cup single sip,Self-feeding Oral Impairment Mildly impaired Oral Phase Comments Pt consumed ethan crackers and a fruit cup consisting of peaches with 4 oz of thin juice via cup. For regular solids and soft solids Pt demonstrated slow rate, small bites, prolonged mastication however adequate bolus formation, extended ap transport, piecemeal deglutition. For thin liquids Pt demonstrated good oral acceptance and containment. He independently alternated liquids/solids to assist with intake. Pharyngeal Impairment Mildly impaired Pharyngeal Phase Comments For reg solids, soft solids and thin liquids Pt demonstrated suspected delay in swallow, however no overt s /s of aspiration. He did not report any occurrences of food feeling stuck in throat. He demonstrated 1x double swallow with peaches. Fatigue/Endurance Endurance WNL The IDDSI Framework Protocol: IDDSI.1 Findings Swallowing Function Oropharyngeal phase dysphagia Severity of Swallow Impairment Mildly-moderately impaired Prognosis Good Based on Cognitive status Recommendations Instrumental Assessment Yes Swallowing Treatment Yes Frequency 1x/week Duration 3 months Recommended Solids Soft & Bite-sized (IDDSI 6) Recommended Liquids Thin (IDDSI 0) Other Recommendations Pt presents with mild oral phase dysphagia and suspected mild-mod pharyngeal phase dysphagia. ST recommends Pt participate in a MBS in order to guide POC. ST recommends Pt consume soft solids and thin liquids with the below mentioned safe swallowing strategies in place. ST contacted Pt's PCP, Dr. Pozo, in regards to recommendation for MBS. ST provided Pt swallow exercises CTAR and effortful swallow to complete 2-3x/day. Safety Precautions/Swallowing Remain upright (90 degrees) Recommendations during all oral intake,Small bites and sips when eating, Slow rate; swallow between bites,Multiple swallows, Alternate liquids and solids Medication Recommendations As Tolerated Education Patient/Caregiver Education Described results of evaluation,Patient expressed understanding of evaluation, Patient expressed agreement with goals & treatment plans Goals Short-term Goals STG 1: Pt will tolerate prescribed diet with <5% overt s/s of aspiration/dysphagia with use of compensatory swallowing strategies and minimal cues. STG 2: Pt will participate in a MBS in order to guide POC and further analyze pharyngeal phase of the swallow. STG 3: Pt will complete hyolaryngeal strengthening exercises for improved pharyngeal phase of swallow with minimal cueing with 90% accuracy. Long-term Goals LTG 1: Patient will consume safest and most efficient least restrictive diet with no clinical s/s of aspiration or dysphagia 100% of the time in order to meet primary nutrition/hydration needs.
--- NOTE | 2023-08-18 13:21 | ST.OPPOC ---
Physical, Occupational & Speech Therapy At [facility] Visit Care Team Role Provider Type Loree Pozo MD Attending Provider Physician Family Provider Primary Care Provider Referring Provider Address: [address] [place] [address], [id number] Speech Pathology Plan of Care Plan of Care Dates 08/18/23-11/16/[address] Loree Pozo Patient History Pt is a 73 year old male seen this date for dysphagia evaluation. He report swallowing issue has been going on for years, specifically feeling like food gets stuck in this throat. He has had 2 barium swallow tests done, 06/30/20 and 05/19/23. Results/impressions from his most recent are as follows: FINDINGS: Function: The calibrated barium tablet is stuck at the epiglottis with initial swallow. The tablet is cleared by refluxing into the mouth and tilting the head back with a forceful swallow. There is normal transit of a calibrated barium tablet through the esophagus into the stomach. There is mild esophageal dysmotility most pronounced in the prone position at the upper esophagus. No elicited gastroesophageal reflux with provocative maneuvers. Morphology: Air-contrast images demonstrate normal mucosal morphology. Single contrast views show no esophageal strictures, extrinsic mass effects, or diverticula. Limited images of the stomach demonstrate normal appearance. Moderate degenerative changes in the cervical spine. IMPRESSION: Barium tablet become stuck at the epiglottis. The tablet was cleared with refluxing into the mouth and a forceful swallow. No diverticulum. Mild esophageal dysmotility. No reflux demonstrated. Recommend speech pathologist consultation. He denies any significant past medical history. He lives at home with his . Short-term Goals STG 1: Pt will tolerate prescribed diet with <5% overt s/s of aspiration/dysphagia with use of compensatory swallowing strategies and minimal cues. STG 2: Pt will participate in a MBS in order to guide POC and further analyze pharyngeal phase of the swallow. STG 3: Pt will complete hyolaryngeal strengthening exercises for improved pharyngeal phase of swallow with minimal cueing with 90% accuracy. Long-term Goals LTG 1: Patient will consume safest and most efficient least restrictive diet with no clinical s/s of aspiration or dysphagia 100% of the time in order to meet primary nutrition/ hydration needs. Comment: Electronically Signed by: MELVIN Najera 08/18/23 1615 If you are in agreement with this Plan of Care, please return a signed and dated copy. I have reviewed this Plan of Care and certify that the skilled therapy services above are required to meet the patient?s needs. Physician Signature Date Printed Name and Credentials Clinical Instructor Signature Printed Name and Credentials
--- NOTE | 2023-08-25 09:34 | ST.IPDYTX ---
Visit Care Team Role Provider Type Loree Pozo MD Attending Provider Physician Family Provider Primary Care Provider Referring Provider Specialty: Family Practice Obstetrics Address: [address] [place] [address], [id number] Email: [email or web address] CLOSER ON Dysphagia Treatment CLOSER ON Dysphagia Treatment Start: 08/25/23 09:28 Freq: Status: Active Protocol: Document 08/25/23 09:28 MERON (Rec: 08/25/23 09:34 MA [id number]) Dysphagia Treatment Session Time Visit Start Time 09:00 Visit Stop Time 09:30 Total Visit Minutes 30 Visit Information Visit Number 2 Plan of Care Dates 08/18/23-11/16/23 Setting Assessment Location Outpatient Care Patient Information Subjective Observations Pt awake, alert and Ox3. He reports swallowing difficulties have been going on for years with the feeling of food getting stuck in his throat. He says he has most difficulties with breads/meats and can usually cough them up if he is having trouble and has not had any significant choking episodes. He reports he has had about 15 pound weight loss over the past few years. He reports he had his throat dilated in the beginning of 2022, however states it did not work. He reports he consumes regular solids at home, however makes sure he takes small bites and has liquid near by to assist with intake. Treatment Liquids Trialed Thin (IDDSI 0) Solids Trialed Regular (IDDSI 7) Pharyngeal Strategies Effortful Swallow Treatment Activities PO trials, safe swallowing strategies, CTAR The IDDSI Framework Protocol: IDDSI.1 Assessment Patient Response to Treatment Excellent Rehab Potential Excellent Assessment of Improvement ST assessed swallow function with therapeutic PO trials of regular solids and thin liquids. He reports he is completing swallow exercises at home and ordered a neckline slimmer to assist with CTAR exercise. He reports no changes to swallow. He states he has not trouble swallowing banana, peanut butter or yogurt but had trouble with gibraltarian fries. Pt consumed 2 ethan crackers with peanut butter and 4 oz of thin juice via cup. Pt demonstrated adequate bite size, rate. Prolonged mastication, however adequate bolus formation and control. No s/s of aspiration or reports of globus sensation . Pt independently alternated liquids/solids. ST cued Pt to utilize effortful swallow with each swallow. He completed 30 reps 3x of CTAR exercise with use of neckline slimmer. Pt with questions regarding how to move his neck. ST provided education and a visual model. Pt demonstrated understanding. ST contacted diagnostic imaging with Pt present in regards to MBS referral. They reported Pt was notified in regards to scheduling MBS and a voicemessage was left. ST communicated with Pt to check voice mail after appointment to f/u and schedule MBS. ST recommends Pt continue to consume soft solids and thin liquids and complete CTAR and effortful swallow exercise at home. Recommendations Liquids Order Thin (IDDSI 0) Diet Order Soft & Bite-sized (IDDSI 6) Medication Recommendations As Tolerated Aspiration Precautions Recommended Precautions Upright at 90 Degrees, Alternate Liquids/Solids,Small Bites/Sips,Effortful Swallow
--- NOTE | 2023-09-15 10:16 | ST.IPDYTX ---
Visit Care Team Role Provider Type Loree Pozo MD Attending Provider Physician Family Provider Primary Care Provider Referring Provider Specialty: Family Practice Obstetrics Address: [address] [place] [address], [phone] Email: [email or web address] C UNIX DEVELOPER Dysphagia Treatment C UNIX DEVELOPER Dysphagia Treatment Start: 08/25/23 09:28 Freq: Status: Active Protocol: Document 09/15/23 10:10 MA (Rec: 09/15/23 10:11 MA [id number]) Dysphagia Treatment Session Time Visit Start Time 09:45 Visit Stop Time 10:15 Total Visit Minutes 30 Visit Information Visit Number 3 Plan of Care Dates 08/18/23-11/16/23 Setting Assessment Location Outpatient Care Patient Information Subjective Observations Pt arrived to therapy on time. Treatment Pharyngeal Strategies Effortful Swallow Treatment Activities Education swallow exercises, MBS review The IDDSI Framework Protocol: IDDSI.1 Assessment Patient Response to Treatment Excellent Rehab Potential Excellent Assessment of Improvement Pt had a MBS completed on 09/10. ST reviewed portion of MBS and will finish reviewing with Pt when full report is available. Pt demonstrated good knowledge of MBS results. He states he purchased a neckline slimmer to complete CTAR exercises at home. ST educated Pt on additional swallowing exercises to complete, which includes Kayla, Natalie, and Shaker . ST encouraged Pt to also continue to complete effortful swallow and CTAR at home. ST demonstrated how to complete exercises. Pt demonstrated understanding. ST educated Pt on plan to do Vitalstim during next visit. ST recommends Pt continue to consume soft solids and thin liquids and complete swallow exercises 2-3x/day. Recommendations Liquids Order Thin (IDDSI 0) Diet Order Soft & Bite-sized (IDDSI 6) Medication Recommendations As Tolerated Aspiration Precautions Recommended Precautions Upright at 90 Degrees, Alternate Liquids/Solids,Small Bites/Sips,Effortful Swallow
--- NOTE | 2023-09-22 12:26 | ST.IPDYTX ---
Visit Care Team Role Provider Type Loree Pozo MD Attending Provider Physician Family Provider Primary Care Provider Referring Provider Specialty: Family Practice Obstetrics Address: [address] [place] [address], [phone] Email: [email or web address] PACKAGING LINE OPERATOR Dysphagia Treatment PACKAGING LINE OPERATOR Dysphagia Treatment Start: 08/25/23 09:28 Freq: Status: Active Protocol: Document 09/22/23 12:15 MA (Rec: 09/22/23 12:26 MA [id number]) Dysphagia Treatment Session Time Visit Start Time 12:00 Visit Stop Time 12:30 Total Visit Minutes 30 Visit Information Visit Number 4 Plan of Care Dates 08/18/23-11/16/23 Setting Assessment Location Outpatient Care Patient Information Subjective Observations Pt arrived to therapy on time. Treatment Liquids Trialed Thin (IDDSI 0) Solids Trialed Soft & Bite-sized (IDDSI 6), Regular (IDDSI 7) Administration Type Self-Feeding Oral Strategies Upright at 90 degrees, Alternate Liquids/Solids Pharyngeal Strategies Effortful Swallow Treatment Activities Neuromuscular electrical stimulation (NMES), PO trials, hyolaryngeal swallow exercises, MBS review The IDDSI Framework Protocol: IDDSI.1 Assessment Patient Response to Treatment Excellent Rehab Potential Excellent Assessment of Improvement ST educated Pt on NMES. Pt compliant. Pt participated in NMES in conjunction with hyolaryngeal strengthening exercises and PO trials of regular and soft solids and thin liquids. ST placed electrodes in the 3h position with Pt tolerating stim at a level 8.0mA. Pt consumed ethan crackers and diced peaches with 4 oz of thin juice via cup. ST reviewed MBS with Pt, educating him on recommendations to see GI d/t esophgeal issues. See MBS report for more details. Pt reported no occurrences of feeling of food stuck in throat during session. For ethan crackers and peaches Pt demonstrated adequate bite size and rate, prolonged mastication however adequate bolus formation and control, piecemeal deglutition, suspected delay in swallow, no overt s/s of aspiration. For thin liquids no overt s/s of aspiration. Unable to comment on pharyngeal phase of the swallow given placement of electrodes. Pt completed 10 reps of swallow exericses including Kayla, Natalie, and effortful swallow. ST encouraged Pt to continue to practice exercises at home, including CTAR/Shaker exercise . Pt reports he has been completing exercises at home without difficulties. ST recommends continuation of soft solids and thin liquids at home or as best tolerated. Recommendations Liquids Order Thin (IDDSI 0) Diet Order Soft & Bite-sized (IDDSI 6) Medication Recommendations As Tolerated Aspiration Precautions Recommended Precautions Upright at 90 Degrees, Alternate Liquids/Solids,Small Bites/Sips,Effortful Swallow
--- NOTE | 2023-09-29 10:02 | ST.IPDYTX ---
Visit Care Team Role Provider Type Loree Pozo MD Attending Provider Physician Family Provider Primary Care Provider Referring Provider Specialty: Family Practice Obstetrics Address: [address] [place] [address], [address] Email: [email or web address] WEB GRAPHIC DESIGNER Dysphagia Treatment WEB GRAPHIC DESIGNER Dysphagia Treatment Start: 08/25/23 09:28 Freq: Status: Active Protocol: Document 09/29/23 09:55 MA (Rec: 09/29/23 10:01 MA [id number]) Dysphagia Treatment Session Time Visit Start Time 09:40 Visit Stop Time 10:20 Total Visit Minutes 40 Visit Information Visit Number 5 Plan of Care Dates 08/18/23-11/16/23 Setting Assessment Location Outpatient Care Patient Information Subjective Observations Pt arrived to therapy on time. Pt reports no changes to swallow. He states he has been trying to do his swallow exercises. Treatment Liquids Trialed Thin (IDDSI 0) Solids Trialed Soft & Bite-sized (IDDSI 6), Regular (IDDSI 7) Administration Type Self-Feeding Oral Strategies Upright at 90 degrees, Alternate Liquids/Solids Pharyngeal Strategies Effortful Swallow Treatment Activities Neuromuscular electrical stimulation (NMES), PO trials, hyolaryngeal swallow exercises The IDDSI Framework Protocol: IDDSI.1 Assessment Patient Response to Treatment Excellent Rehab Potential Excellent Assessment of Improvement ST educated Pt on recommendation for GI referral based on MBS results. Pt reports he received what he thinks is the referral in the mail and that he has to call to schedule an appointment. ST communicated plan to continue swallow therapy to see if it helps at all in combination with GI. Pt verbalized understanding. Pt participated in NMES in conjunction with hyolaryngeal strengthening exercises and PO trials of regular and soft solids and thin liquids. ST placed electrodes in the 3h position with Pt tolerating stim at a level 8.0mA. Pt consumed ethan crackers and diced peaches with 4 oz of thin juice via cup. For ethan crackers and peaches Pt demonstrated adequate bite size and rate, prolonged mastication however adequate bolus formation and control, piecemeal deglutition, suspected delay in swallow, no overt s/s of aspiration. Pt reported 1x occurrences of food stuck in throat with audible swallow while attempting to swallow. He reports he has figured out how to clear bolus when it feels stuck, which involves him pushing food back up a little and then take a sip of liquid and swallow. For thin liquids no overt s/s of aspiration. Unable to comment on pharyngeal phase of the swallow given placement of electrodes. Pt completed 10 reps of swallow exericses including Kayla, Natalie, and effortful swallow. ST encouraged Pt to continue to practice exercises at home, including CTAR/Shaker exercise . Pt reports he has been completing exercises at home without difficulties. ST recommends continuation of soft solids and thin liquids at home or as best tolerated. Recommendations Liquids Order Thin (IDDSI 0) Diet Order Soft & Bite-sized (IDDSI 6) Medication Recommendations As Tolerated Additional Dietary Needs Reminders to Use Strategies Aspiration Precautions Recommended Precautions Upright at 90 Degrees, Alternate Liquids/Solids,Small Bites/Sips,Effortful Swallow
--- NOTE | 2023-10-13 10:03 | ST.IPDYTX ---
Visit Care Team Role Provider Type Loree Pozo MD Attending Provider Physician Family Provider Primary Care Provider Referring Provider Specialty: Family Practice Obstetrics Address: [address] [place] [address], [address] Email: [email or web address] MOTOR COACH TOUR OPERATOR Dysphagia Treatment MOTOR COACH TOUR OPERATOR Dysphagia Treatment Start: 08/25/23 09:28 Freq: Status: Active Protocol: Document 10/13/23 09:59 MA (Rec: 10/13/23 10:02 MA [id number]) Dysphagia Treatment Session Time Visit Start Time 09:45 Visit Stop Time 10:30 Total Visit Minutes 45 Visit Information Visit Number 6 Plan of Care Dates 08/18/23-11/16/23 Setting Assessment Location Outpatient Care Patient Information Subjective Observations Pt arrived to therapy on time. Pt reports he noticed some slight improvements to swallow , however states it went back to baseline. He states he has been trying to do his swallow exercises. Treatment Liquids Trialed Thin (IDDSI 0) Solids Trialed Soft & Bite-sized (IDDSI 6), Regular (IDDSI 7) Administration Type Self-Feeding Oral Strategies Upright at 90 degrees, Alternate Liquids/Solids Pharyngeal Strategies Effortful Swallow Treatment Activities Neuromuscular electrical stimulation (NMES), PO trials, hyolaryngeal swallow exercises The IDDSI Framework Protocol: IDDSI.1 Assessment Patient Response to Treatment Excellent Rehab Potential Excellent Assessment of Improvement Pt participated in NMES in conjunction with hyolaryngeal strengthening exercises and PO trials of regular and soft solids and thin liquids. ST placed electrodes in the 3h position with Pt tolerating stim at a level 9.0mA. Pt consumed ethan crackers and diced peaches with 4 oz of thin juice via cup. For ethan crackers and peaches Pt demonstrated adequate bite size and rate, prolonged mastication however adequate bolus formation and control, piecemeal deglutition, suspected delay in swallow, no overt s/s of aspiration. For thin liquids no overt s/s of aspiration. Unable to comment on pharyngeal phase of the swallow given placement of electrodes. Pt completed 10 reps of swallow exericses including Kayla, Natalie, and effortful swallow. ST encouraged Pt to continue to practice exercises at home, including CTAR/Shaker exercise . Pt reports he has been completing exercises at home without difficulties. ST recommends continuation of soft solids and thin liquids at home or as best tolerated. Recommendations Liquids Order Thin (IDDSI 0) Diet Order Soft & Bite-sized (IDDSI 6) Medication Recommendations As Tolerated Additional Dietary Needs Reminders to Use Strategies Aspiration Precautions Recommended Precautions Upright at 90 Degrees, Alternate Liquids/Solids,Small Bites/Sips,Effortful Swallow
--- NOTE | 2023-10-20 10:02 | ST.IPDYTX ---
Visit Care Team Role Provider Type Loree Pozo MD Attending Provider Physician Family Provider Primary Care Provider Referring Provider Specialty: Family Practice Obstetrics Address: [address] [place] [address], [id number] Email: [email or web address] TAIL EDGER Dysphagia Treatment TAIL EDGER Dysphagia Treatment Start: 08/25/23 09:28 Freq: Status: Active Protocol: Document 10/20/23 09:57 MA (Rec: 10/20/23 10:01 MA [id number]) Dysphagia Treatment Session Time Visit Start Time 09:45 Visit Stop Time 10:25 Total Visit Minutes 40 Visit Information Visit Number 7 Plan of Care Dates 08/18/23-11/16/23 Setting Assessment Location Outpatient Care Patient Information Subjective Observations Pt arrived to therapy on time. Treatment Liquids Trialed Thin (IDDSI 0) Solids Trialed Soft & Bite-sized (IDDSI 6), Regular (IDDSI 7) Administration Type Self-Feeding Oral Strategies Upright at 90 degrees, Alternate Liquids/Solids Pharyngeal Strategies Effortful Swallow Treatment Activities Neuromuscular electrical stimulation (NMES), PO trials, hyolaryngeal swallow exercises The IDDSI Framework Protocol: IDDSI.1 Assessment Patient Response to Treatment Excellent Rehab Potential Excellent Assessment of Improvement Pt participated in NMES in conjunction with hyolaryngeal strengthening exercises and PO trials of regular and soft solids and thin liquids. ST placed electrodes in the 3h position with Pt tolerating stim at a level 8.0mA. Pt consumed ethan crackers and diced peaches with 4 oz of thin juice via cup. For ethan crackers and peaches Pt demonstrated adequate bite size and rate, prolonged mastication however adequate bolus formation and control, piecemeal deglutition, suspected delay in swallow, no overt s/s of aspiration. For thin liquids no overt s/s of aspiration. Unable to comment on pharyngeal phase of the swallow given placement of electrodes. Pt completed 10 reps of swallow exericses including Kayla, Natalie, and effortful swallow. ST encouraged Pt to continue to practice exercises at home, including CTAR/Shaker exercise . Pt reports he has been completing exercises at home without difficulties. ST recommends continuation of soft solids and thin liquids at home or as best tolerated. Recommendations Liquids Order Thin (IDDSI 0) Diet Order Soft & Bite-sized (IDDSI 6) Medication Recommendations As Tolerated Additional Dietary Needs Reminders to Use Strategies Aspiration Precautions Recommended Precautions Upright at 90 Degrees, Alternate Liquids/Solids,Small Bites/Sips,Effortful Swallow Treatment Plan Appropriate for Continued Therapy Yes
--- NOTE | 2023-11-03 09:56 | ST.IPDYTX ---
Visit Care Team Role Provider Type Loree Pozo MD Attending Provider Physician Family Provider Primary Care Provider Referring Provider Specialty: Family Practice Obstetrics Address: [address] [place] [address], [id number] Email: [email or web address] MINERAL SURVEYING TECHNICIAN Dysphagia Treatment MINERAL SURVEYING TECHNICIAN Dysphagia Treatment Start: 08/25/23 09:28 Freq: Status: Active Protocol: Document 11/03/23 09:55 MA (Rec: 11/03/23 09:56 MA [id number]) Dysphagia Treatment Session Time Visit Start Time 09:45 Visit Stop Time 10:25 Total Visit Minutes 40 Visit Information Visit Number 8 Plan of Care Dates 08/18/23-11/16/23 Setting Assessment Location Outpatient Care Next Note Type Next Note Type Treatment Note Patient Information Subjective Observations Pt arrived to therapy on time. Pt reports no changes to swallow. Treatment Liquids Trialed Thin (IDDSI 0) Solids Trialed Soft & Bite-sized (IDDSI 6), Regular (IDDSI 7) Administration Type Self-Feeding Oral Strategies Upright at 90 degrees, Alternate Liquids/Solids Pharyngeal Strategies Effortful Swallow Treatment Activities Neuromuscular electrical stimulation (NMES), PO trials, hyolaryngeal swallow exercises The IDDSI Framework Protocol: IDDSI.1 Assessment Patient Response to Treatment Excellent Rehab Potential Excellent Assessment of Improvement Pt participated in NMES in conjunction with hyolaryngeal strengthening exercises and PO trials of regular and soft solids and thin liquids. ST placed electrodes in the 3h position with Pt tolerating stim at a level 8.0mA. Pt consumed ethan crackers and diced peaches with 4 oz of thin juice via cup. For ethan crackers and peaches Pt demonstrated adequate bite size and rate, prolonged mastication however adequate bolus formation and control, piecemeal deglutition, suspected delay in swallow, no overt s/s of aspiration. For thin liquids no overt s/s of aspiration. Unable to comment on pharyngeal phase of the swallow given placement of electrodes. Pt completed 10 reps of swallow exericses including Kayla, Natalie, and effortful swallow. ST encouraged Pt to continue to practice exercises at home, including CTAR/Shaker exercise . Pt reports he has been completing exercises at home without difficulties. ST recommends continuation of soft solids and thin liquids at home or as best tolerated. Recommendations Liquids Order Thin (IDDSI 0) Diet Order Soft & Bite-sized (IDDSI 6) Medication Recommendations As Tolerated Additional Dietary Needs Reminders to Use Strategies Aspiration Precautions Recommended Precautions Upright at 90 Degrees, Alternate Liquids/Solids,Small Bites/Sips,Effortful Swallow Treatment Plan Appropriate for Continued Therapy Yes
--- NOTE | 2023-11-10 10:06 | ST.IPDYTX ---
Visit Care Team Role Provider Type Loree Pozo MD Attending Provider Physician Family Provider Primary Care Provider Referring Provider Specialty: Family Practice Obstetrics Address: [address] [place] [address], [id number] Email: [email or web address] BURN OUT SCARFING OPERATOR Dysphagia Treatment BURN OUT SCARFING OPERATOR Dysphagia Treatment Start: 08/25/23 09:28 Freq: Status: Active Protocol: Document 11/10/23 10:05 MA (Rec: 11/10/23 10:06 MA [id number]) Dysphagia Treatment Session Time Visit Start Time 09:45 Visit Stop Time 10:25 Total Visit Minutes 40 Visit Information Visit Number 9 Plan of Care Dates 08/18/23-11/16/23 Setting Assessment Location Outpatient Care Next Note Type Next Note Type Treatment Note Patient Information Subjective Observations Pt arrived to therapy on time. Pt reports no changes to swallow. Treatment Liquids Trialed Thin (IDDSI 0) Solids Trialed Soft & Bite-sized (IDDSI 6), Regular (IDDSI 7) Administration Type Self-Feeding Oral Strategies Upright at 90 degrees, Alternate Liquids/Solids Pharyngeal Strategies Effortful Swallow Treatment Activities Neuromuscular electrical stimulation (NMES), PO trials, hyolaryngeal swallow exercises The IDDSI Framework Protocol: IDDSI.1 Assessment Patient Response to Treatment Excellent Rehab Potential Excellent Assessment of Improvement Pt participated in NMES in conjunction with hyolaryngeal strengthening exercises and PO trials of regular and soft solids and thin liquids. ST placed electrodes in the 3h position with Pt tolerating stim at a level 8.0mA. Pt consumed ethan crackers and diced peaches with 4 oz of thin juice via cup. For ethan crackers and peaches Pt demonstrated adequate bite size and rate, prolonged mastication however adequate bolus formation and control, piecemeal deglutition, suspected delay in swallow, no overt s/s of aspiration. For thin liquids no overt s/s of aspiration. Unable to comment on pharyngeal phase of the swallow given placement of electrodes. Pt completed 10 reps of swallow exericses including Kayla, Natalie, and effortful swallow. ST encouraged Pt to continue to practice exercises at home, including CTAR/Shaker exercise . Pt reports he has been completing exercises at home without difficulties. ST recommends continuation of soft solids and thin liquids at home or as best tolerated. Recommendations Liquids Order Thin (IDDSI 0) Diet Order Soft & Bite-sized (IDDSI 6) Medication Recommendations As Tolerated Additional Dietary Needs Reminders to Use Strategies Aspiration Precautions Recommended Precautions Upright at 90 Degrees, Alternate Liquids/Solids,Small Bites/Sips,Effortful Swallow Treatment Plan Appropriate for Continued Therapy Yes
--- NOTE | 2023-11-17 10:07 | ST.IPDYTX ---
Visit Care Team Role Provider Type Loree Pozo MD Attending Provider Physician Family Provider Primary Care Provider Referring Provider Specialty: Family Practice Obstetrics Address: [address] [place] [address], [phone] Email: [email or web address] TANK TESTER Dysphagia Treatment TANK TESTER Dysphagia Treatment Start: 08/25/23 09:28 Freq: Status: Active Protocol: Document 11/17/23 10:01 MA (Rec: 11/17/23 10:06 MA [id number]) Dysphagia Treatment Session Time Visit Start Time 09:45 Visit Stop Time 10:25 Total Visit Minutes 40 Visit Information Visit Number 10 Plan of Care Dates 11/17/23-02/17/24 Setting Assessment Location Outpatient Care Next Note Type Next Note Type Treatment Note Patient Information Subjective Observations Pt arrived to therapy on time. Pt reports no changes to swallow. Pt POC date ended yesterday, however ST continues to be warranted in order to improve swallow function. Treatment Liquids Trialed Thin (IDDSI 0) Solids Trialed Soft & Bite-sized (IDDSI 6), Regular (IDDSI 7) Administration Type Self-Feeding Oral Strategies Upright at 90 degrees, Alternate Liquids/Solids Pharyngeal Strategies Effortful Swallow Treatment Activities Neuromuscular electrical stimulation (NMES), PO trials, hyolaryngeal swallow exercises The IDDSI Framework Protocol: IDDSI.1 Assessment Patient Response to Treatment Excellent Rehab Potential Excellent Assessment of Improvement Pt participated in NMES in conjunction with hyolaryngeal strengthening exercises and PO trials of regular and soft solids and thin liquids. ST placed electrodes in the 3h position with Pt tolerating stim at a level 8.0mA. Pt consumed ethan crackers and diced peaches with 4 oz of thin juice via cup. For ethan crackers and peaches Pt demonstrated adequate bite size and rate, prolonged mastication however adequate bolus formation and control, piecemeal deglutition, suspected delay in swallow, no overt s/s of aspiration. For thin liquids no overt s/s of aspiration. Unable to comment on pharyngeal phase of the swallow given placement of electrodes. Pt completed 10 reps of swallow exericses including Kayla, Natalie, and effortful swallow. ST encouraged Pt to continue to practice exercises at home, including CTAR/Shaker exercise . Pt reports he has been completing exercises at home without difficulties. ST recommends continuation of soft solids and thin liquids at home or as best tolerated. Recommendations Liquids Order Thin (IDDSI 0) Diet Order Soft & Bite-sized (IDDSI 6) Medication Recommendations As Tolerated Additional Dietary Needs Reminders to Use Strategies Aspiration Precautions Recommended Precautions Upright at 90 Degrees, Alternate Liquids/Solids,Small Bites/Sips,Effortful Swallow Treatment Plan Appropriate for Continued Therapy Yes Dysphagia Goals STG 1: Pt will tolerate prescribed diet with <5% overt s/s of aspiration/ dysphagia with use of compensatory swallowing strategies and minimal cues.- CONTINUE (ST recommends regular solids and thin liquids or Pt tolerance) STG 2: Pt will participate in a MBS in order to guide POC and further analyze pharyngeal phase of the swallow. - MET STG 3: Pt will complete hyolaryngeal strengthening exercises for improved pharyngeal phase of swallow with minimal cueing with 90% accuracy.- CONTINUE NEW GOAL STG 4: Pt will tolerate applications of NMES for improved swallow function as evidenced by increased toleration of least restrictive PO diet consistencies. Long-term Goals LTG 1: Patient will consume safest and most efficient least restrictive diet with no clinical s/s of aspiration or dysphagia 100% of the time in order to meet primary nutrition/ hydration needs.
--- NOTE | 2023-11-17 10:07 | ST.OPPOC ---
Physical, Occupational & Speech Therapy At [facility] Visit Care Team Role Provider Type Loree Pozo MD Attending Provider Physician Family Provider Primary Care Provider Referring Provider Address: [address] [place] [address], [id number] Speech Pathology Plan of Care Plan of Care Dates 11/17/23-02/17/[address] Loree Pozo Patient History Pt is a 73 year old male seen this date for dysphagia evaluation. He report swallowing issue has been going on for years, specifically feeling like food gets stuck in this throat. He has had 2 barium swallow tests done, 06/30/20 and 05/19/23. Results/impressions from his most recent are as follows: FINDINGS: Function: The calibrated barium tablet is stuck at the epiglottis with initial swallow. The tablet is cleared by refluxing into the mouth and tilting the head back with a forceful swallow. There is normal transit of a calibrated barium tablet through the esophagus into the stomach. There is mild esophageal dysmotility most pronounced in the prone position at the upper esophagus. No elicited gastroesophageal reflux with provocative maneuvers. Morphology: Air-contrast images demonstrate normal mucosal morphology. Single contrast views show no esophageal strictures, extrinsic mass effects, or diverticula. Limited images of the stomach demonstrate normal appearance. Moderate degenerative changes in the cervical spine. IMPRESSION: Barium tablet become stuck at the epiglottis. The tablet was cleared with refluxing into the mouth and a forceful swallow. No diverticulum. Mild esophageal dysmotility. No reflux demonstrated. Recommend speech pathologist consultation. He denies any significant past medical history. He lives at home with his . Recommended Precautions Upright at 90 Degrees,Alternate Liquids/Solids, Small Bites/Sips,Effortful Swallow Short-term Goals STG 1: Pt will tolerate prescribed diet with <5% overt s/s of aspiration/dysphagia with use of compensatory swallowing strategies and minimal cues. STG 2: Pt will participate in a MBS in order to guide POC and further analyze pharyngeal phase of the swallow. STG 3: Pt will complete hyolaryngeal strengthening exercises for improved pharyngeal phase of swallow with minimal cueing with 90% accuracy. Long-term Goals LTG 1: Patient will consume safest and most efficient least restrictive diet with no clinical s/s of aspiration or dysphagia 100% of the time in order to meet primary nutrition/ hydration needs. Comment: Electronically Signed by: MELVIN Najera 11/17/23 1007 If you are in agreement with this Plan of Care, please return a signed and dated copy. I have reviewed this Plan of Care and certify that the skilled therapy services above are required to meet the patient?s needs. Physician Signature Date Printed Name and Credentials Clinical Instructor Signature Printed Name and Credentials
--- NOTE | 2023-11-24 10:14 | ST.IPDYTX ---
Visit Care Team Role Provider Type Loree Pozo MD Attending Provider Physician Family Provider Primary Care Provider Referring Provider Specialty: Family Practice Obstetrics Address: [address] [place] [address], [id number] Email: [email or web address] TUBE MAKER Dysphagia Treatment TEST TUBE MAKER Dysphagia Treatment Start: 08/25/23 09:28 Freq: Status: Active Protocol: Document 11/24/23 09:57 MA (Rec: 11/24/23 10:02 MA [id number]) Dysphagia Treatment Session Time Visit Start Time 09:45 Visit Stop Time 10:25 Total Visit Minutes 40 Visit Information Visit Number 11 Plan of Care Dates 11/17/23-02/17/24 Setting Assessment Location Outpatient Care Next Note Type Next Note Type Treatment Note Patient Information Subjective Observations Pt arrived to therapy on time. Pt reports no changes to swallow. ST facilitated conversation about discharging from therapy, however Pt reports he would like to continue swallow therapy to see if any improvements occur. He does state occasional improvements with swallow, however it flucuates. Treatment Liquids Trialed Thin (IDDSI 0) Solids Trialed Soft & Bite-sized (IDDSI 6), Regular (IDDSI 7) Administration Type Self-Feeding Oral Strategies Upright at 90 degrees, Alternate Liquids/Solids Pharyngeal Strategies Effortful Swallow Treatment Activities Neuromuscular electrical stimulation (NMES), PO trials, hyolaryngeal swallow exercises The IDDSI Framework Protocol: IDDSI.1 Assessment Patient Response to Treatment Excellent Rehab Potential Excellent Assessment of Improvement Pt participated in NMES in conjunction with hyolaryngeal strengthening exercises and PO trials of regular and soft solids and thin liquids. ST placed electrodes in the 3h position with Pt tolerating stim at a level 9.0mA. Pt consumed ethan crackers and diced peaches with 4 oz of thin juice via cup. For ethan crackers and peaches Pt demonstrated adequate bite size and rate, prolonged mastication however adequate bolus formation and control, piecemeal deglutition, suspected delay in swallow, no overt s/s of aspiration. For thin liquids no overt s/s of aspiration. Unable to comment on pharyngeal phase of the swallow given placement of electrodes. Pt completed 10 reps of swallow exericses including Kayla, Natalie, and effortful swallow. ST encouraged Pt to continue to practice exercises at home, including CTAR/Shaker exercise . Pt reports he has been completing exercises at home without difficulties. ST recommends continuation of soft solids and thin liquids at home or as best tolerated. Recommendations Liquids Order Thin (IDDSI 0) Diet Order Soft & Bite-sized (IDDSI 6) Medication Recommendations As Tolerated Additional Dietary Needs Reminders to Use Strategies Aspiration Precautions Recommended Precautions Upright at 90 Degrees, Alternate Liquids/Solids,Small Bites/Sips,Effortful Swallow Treatment Plan Appropriate for Continued Therapy Yes Therapy Recommendations Continue current treatment plan Dysphagia Goals STG 1: Pt will tolerate prescribed diet with <5% overt s/s of aspiration/ dysphagia with use of compensatory swallowing strategies and minimal cues.- CONTINUE (ST recommends regular solids and thin liquids or Pt tolerance) STG 2: Pt will participate in a MBS in order to guide POC and further analyze pharyngeal phase of the swallow. - MET STG 3: Pt will complete hyolaryngeal strengthening exercises for improved pharyngeal phase of swallow with minimal cueing with 90% accuracy.- CONTINUE NEW GOAL STG 4: Pt will tolerate applications of NMES for improved swallow function as evidenced by increased toleration of least restrictive PO diet consistencies. Long-term Goals LTG 1: Patient will consume safest and most efficient least restrictive diet with no clinical s/s of aspiration or dysphagia 100% of the time in order to meet primary nutrition/ hydration needs.
--- NOTE | 2023-12-01 10:07 | ST.IPDYTX ---
Visit Care Team Role Provider Type Loree Pozo MD Attending Provider Physician Family Provider Primary Care Provider Referring Provider Specialty: Family Practice Obstetrics Address: [address] [place] [address], [address] Email: [email or web address] MANAGER BUSINESS INTELLIGENCE Dysphagia Treatment MANAGER BUSINESS INTELLIGENCE Dysphagia Treatment Start: 08/25/23 09:28 Freq: Status: Active Protocol: Document 12/01/23 10:05 MA (Rec: 12/01/23 10:07 MA [id number]) Dysphagia Treatment Session Time Visit Start Time 09:45 Visit Stop Time 10:25 Total Visit Minutes 40 Visit Information Visit Number 12 Plan of Care Dates 11/17/23-02/17/24 Setting Assessment Location Outpatient Care Next Note Type Next Note Type Treatment Note Patient Information Subjective Observations Pt arrived to therapy on time. Pt reports slight improvements in swallow. ST facilitated conversation about discharging from therapy, however Pt reports he would like to continue swallow therapy to see if any improvements occur. Treatment Liquids Trialed Thin (IDDSI 0) Solids Trialed Soft & Bite-sized (IDDSI 6), Regular (IDDSI 7) Administration Type Self-Feeding Oral Strategies Upright at 90 degrees, Alternate Liquids/Solids Pharyngeal Strategies Effortful Swallow Treatment Activities Neuromuscular electrical stimulation (NMES), PO trials, hyolaryngeal swallow exercises The IDDSI Framework Protocol: IDDSI.1 Assessment Patient Response to Treatment Excellent Rehab Potential Excellent Assessment of Improvement Pt participated in NMES in conjunction with hyolaryngeal strengthening exercises and PO trials of regular and soft solids and thin liquids. ST placed electrodes in the 3h position with Pt tolerating stim at a level 9.0mA. Pt consumed ethan crackers and pudding with 4 oz of thin juice via cup. For ethan crackers and pudding Pt demonstrated adequate bite size and rate, prolonged mastication however adequate bolus formation and control, piecemeal deglutition, suspected delay in swallow, no overt s/s of aspiration. He reported ease of intake with pudding. For thin liquids no overt s/s of aspiration. Unable to comment on pharyngeal phase of the swallow given placement of electrodes. Pt completed 10 reps of swallow exericses including Kayla, Natalie, and effortful swallow. ST encouraged Pt to continue to practice exercises at home, including CTAR/Shaker exercise . Pt reports he has been completing exercises at home without difficulties. ST recommends continuation of soft solids and thin liquids at home or as best tolerated. Recommendations Liquids Order Thin (IDDSI 0) Diet Order Soft & Bite-sized (IDDSI 6) Medication Recommendations As Tolerated Additional Dietary Needs Reminders to Use Strategies Aspiration Precautions Recommended Precautions Upright at 90 Degrees, Alternate Liquids/Solids,Small Bites/Sips,Effortful Swallow Treatment Plan Appropriate for Continued Therapy Yes Therapy Recommendations Continue current treatment plan Dysphagia Goals STG 1: Pt will tolerate prescribed diet with <5% overt s/s of aspiration/ dysphagia with use of compensatory swallowing strategies and minimal cues.- CONTINUE (ST recommends regular solids and thin liquids or Pt tolerance) STG 2: Pt will participate in a MBS in order to guide POC and further analyze pharyngeal phase of the swallow. - MET STG 3: Pt will complete hyolaryngeal strengthening exercises for improved pharyngeal phase of swallow with minimal cueing with 90% accuracy.- CONTINUE NEW GOAL STG 4: Pt will tolerate applications of NMES for improved swallow function as evidenced by increased toleration of least restrictive PO diet consistencies. Long-term Goals LTG 1: Patient will consume safest and most efficient least restrictive diet with no clinical s/s of aspiration or dysphagia 100% of the time in order to meet primary nutrition/ hydration needs.
--- NOTE | 2024-01-01 08:36 | ST.IPDYTX ---
Visit Care Team Role Provider Type Lroee Pozo MD Attending Provider Physician Family Provider Primary Care Provider Referring Provider Specialty: Family Practice Obstetrics Address: [address] [place] [address], [address] Email: [email or web address] REDYE HAND Dysphagia Treatment REDYE HAND Dysphagia Treatment Start: 08/25/23 09:28 Freq: Status: Active Protocol: Document 01/01/24 08:28 MA (Rec: 01/01/24 08:35 MA [id number]) Dysphagia Treatment Session Time Visit Start Time 08:15 Visit Stop Time 08:55 Total Visit Minutes 40 Visit Information Visit Number 13 Plan of Care Dates 11/17/23-02/17/24 Setting Assessment Location Outpatient Care Next Note Type Next Note Type Treatment Note Patient Information Subjective Observations Pt arrived to therapy on time. Pt reports slight difficulties with swallowing, which he reports may be d/t missing almost a month of speech therapy d/t scheduling issues. Treatment Liquids Trialed Thin (IDDSI 0) Solids Trialed Soft & Bite-sized (IDDSI 6), Regular (IDDSI 7) Administration Type Self-Feeding Oral Strategies Upright at 90 degrees, Alternate Liquids/Solids Pharyngeal Strategies Effortful Swallow Treatment Activities Neuromuscular electrical stimulation (NMES), PO trials, hyolaryngeal swallow exercises The IDDSI Framework Protocol: IDDSI.1 Assessment Patient Response to Treatment Excellent Rehab Potential Excellent Assessment of Improvement Pt participated in NMES in conjunction with hyolaryngeal strengthening exercises and PO trials of regular and soft solids and thin liquids. ST placed electrodes in the 3h position with Pt tolerating stim at a level 8.0mA. Pt consumed ethan crackers and diced peaches with 7 oz of thin juice via cup. For ethan crackers and pudding Pt demonstrated adequate bite size and rate, prolonged mastication however adequate bolus formation and control, piecemeal deglutition, suspected delay in swallow, no overt s/s of aspiration. He reported ease of intake with pudding. For thin liquids no overt s/s of aspiration. Unable to comment on pharyngeal phase of the swallow given placement of electrodes. Pt completed 10 reps of swallow exericses including Kayla, Natalie, and effortful swallow. ST encouraged Pt to continue to practice exercises at home, including CTAR/Shaker exercise . Pt reports he has been completing exercises at home without difficulties. ST recommends continuation of soft solids and thin liquids at home or as best tolerated. Recommendations Liquids Order Thin (IDDSI 0) Diet Order Soft & Bite-sized (IDDSI 6) Medication Recommendations As Tolerated Additional Dietary Needs Reminders to Use Strategies Aspiration Precautions Recommended Precautions Upright at 90 Degrees, Alternate Liquids/Solids,Small Bites/Sips,Effortful Swallow Treatment Plan Appropriate for Continued Therapy Yes Therapy Recommendations Continue current treatment plan Dysphagia Goals STG 1: Pt will tolerate prescribed diet with <5% overt s/s of aspiration/ dysphagia with use of compensatory swallowing strategies and minimal cues.- CONTINUE (ST recommends regular solids and thin liquids or Pt tolerance) STG 2: Pt will participate in a MBS in order to guide POC and further analyze pharyngeal phase of the swallow. - MET STG 3: Pt will complete hyolaryngeal strengthening exercises for improved pharyngeal phase of swallow with minimal cueing with 90% accuracy.- CONTINUE NEW GOAL STG 4: Pt will tolerate applications of NMES for improved swallow function as evidenced by increased toleration of least restrictive PO diet consistencies. Long-term Goals LTG 1: Patient will consume safest and most efficient least restrictive diet with no clinical s/s of aspiration or dysphagia 100% of the time in order to meet primary nutrition/ hydration needs.
--- NOTE | 2024-01-13 14:48 | ST.IPDYTX ---
Visit Care Team Role Provider Type Loree Pozo MD Attending Provider Physician Family Provider Primary Care Provider Referring Provider Specialty: Family Practice Obstetrics Address: [address] [place] [address], [id number] Email: [email or web address] QUILLER TENDER Dysphagia Treatment QUILLER TENDER Dysphagia Treatment Start: 08/25/23 09:28 Freq: Status: Active Protocol: Document 01/13/24 14:34 MA (Rec: 01/13/24 14:47 MA [id number]) Dysphagia Treatment Session Time Visit Start Time 14:30 Visit Stop Time 15:10 Total Visit Minutes 40 Visit Information Visit Number 14 Plan of Care Dates 11/17/23-02/17/24 Setting Assessment Location Outpatient Care Next Note Type Next Note Type Treatment Note Patient Information Subjective Observations Pt arrived to therapy on time. Pt reports no changes to swallow. He does state that after he has the NMES his swallow feels better. He also states he has a GI appointment on January 27. Treatment Liquids Trialed Thin (IDDSI 0) Solids Trialed Soft & Bite-sized (IDDSI 6), Regular (IDDSI 7) Administration Type Self-Feeding Oral Strategies Upright at 90 degrees, Alternate Liquids/Solids Pharyngeal Strategies Effortful Swallow Treatment Activities Neuromuscular electrical stimulation (NMES), PO trials, hyolaryngeal swallow exercises The IDDSI Framework Protocol: IDDSI.1 Assessment Patient Response to Treatment Excellent Rehab Potential Excellent Assessment of Improvement Pt participated in NMES in conjunction with hyolaryngeal strengthening exercises and PO trials of regular and soft solids and thin liquids. ST placed electrodes in the 3h position with Pt tolerating stim at a level 8.0mA. Pt consumed ethan crackers with peanut butter and diced peaches with 7 oz of thin juice via cup. For ethan crackers and peaches Pt demonstrated adequate bite size and rate, prolonged mastication however adequate bolus formation and control, piecemeal deglutition, suspected delay in swallow, no overt s/s of aspiration. For thin liquids no overt s/s of aspiration. Unable to comment on pharyngeal phase of the swallow given placement of electrodes. Pt completed 10 reps of swallow exericses including Kayla, Natalie, and effortful swallow. ST encouraged Pt to continue to practice exercises at home, including CTAR/Shaker exercise . Pt reports he has been completing exercises at home without difficulties. ST recommends continuation of soft solids and thin liquids at home or as best tolerated. Recommendations Liquids Order Thin (IDDSI 0) Diet Order Soft & Bite-sized (IDDSI 6) Medication Recommendations As Tolerated Additional Dietary Needs Reminders to Use Strategies Aspiration Precautions Recommended Precautions Upright at 90 Degrees, Alternate Liquids/Solids,Small Bites/Sips,Effortful Swallow Treatment Plan Appropriate for Continued Therapy Yes Therapy Recommendations Continue current treatment plan Dysphagia Goals STG 1: Pt will tolerate prescribed diet with <5% overt s/s of aspiration/ dysphagia with use of compensatory swallowing strategies and minimal cues.- CONTINUE (ST recommends regular solids and thin liquids or Pt tolerance) STG 2: Pt will participate in a MBS in order to guide POC and further analyze pharyngeal phase of the swallow. - MET STG 3: Pt will complete hyolaryngeal strengthening exercises for improved pharyngeal phase of swallow with minimal cueing with 90% accuracy.- CONTINUE NEW GOAL STG 4: Pt will tolerate applications of NMES for improved swallow function as evidenced by increased toleration of least restrictive PO diet consistencies. Long-term Goals LTG 1: Patient will consume safest and most efficient least restrictive diet with no clinical s/s of aspiration or dysphagia 100% of the time in order to meet primary nutrition/ hydration needs.
--- NOTE | 2024-01-19 10:56 | ST.IPDYTX ---
Visit Care Team Role Provider Type Loree Pozo MD Attending Provider Physician Family Provider Primary Care Provider Referring Provider Specialty: Family Practice Obstetrics Address: [address] [place] [address], [id number] Email: [email or web address] STOCKBROKING DEALER Dysphagia Treatment STOCKBROKING DEALER Dysphagia Treatment Start: 08/25/23 09:28 Freq: Status: Active Protocol: Document 01/19/24 10:51 MA (Rec: 01/19/24 10:55 MA [id number]) Dysphagia Treatment Session Time Visit Start Time 10:30 Visit Stop Time 11:10 Total Visit Minutes 40 Visit Information Visit Number 15 Plan of Care Dates 11/17/23-02/17/24 Setting Assessment Location Outpatient Care Next Note Type Next Note Type Treatment Note Patient Information Subjective Observations Pt arrived to therapy on time. Pt reports no changes to swallow. He does state that after he has the NMES his swallow feels better. He also states he has a GI appointment on January 27. Treatment Liquids Trialed Thin (IDDSI 0) Solids Trialed Soft & Bite-sized (IDDSI 6), Regular (IDDSI 7) Administration Type Self-Feeding Oral Strategies Upright at 90 degrees, Alternate Liquids/Solids Pharyngeal Strategies Effortful Swallow Treatment Activities Neuromuscular electrical stimulation (NMES), PO trials, hyolaryngeal swallow exercises The IDDSI Framework Protocol: IDDSI.1 Assessment Patient Response to Treatment Excellent Rehab Potential Excellent Assessment of Improvement Pt participated in NMES in conjunction with hyolaryngeal strengthening exercises and PO trials of regular and soft solids and thin liquids. ST placed electrodes in the 3h position with Pt tolerating stim at a level 8.0mA. Pt consumed ethan crackers and diced pears with 7 oz of thin juice via cup. For ethan crackers and pears Pt demonstrated adequate bite size and rate, prolonged mastication however adequate bolus formation and control, piecemeal deglutition, suspected delay in swallow, no overt s/s of aspiration. For thin liquids no overt s/s of aspiration. Unable to comment on pharyngeal phase of the swallow given placement of electrodes. Pt completed 10 reps of swallow exericses including Kayla, Natalie, and effortful swallow. ST encouraged Pt to continue to practice exercises at home, including CTAR/Shaker exercise . Pt reports he has been completing exercises at home without difficulties. ST recommends continuation of soft solids and thin liquids at home or as best tolerated. Recommendations Liquids Order Thin (IDDSI 0) Diet Order Soft & Bite-sized (IDDSI 6) Medication Recommendations As Tolerated Additional Dietary Needs Reminders to Use Strategies Aspiration Precautions Recommended Precautions Upright at 90 Degrees, Alternate Liquids/Solids,Small Bites/Sips,Effortful Swallow Treatment Plan Appropriate for Continued Therapy Yes Therapy Recommendations Continue current treatment plan Dysphagia Goals STG 1: Pt will tolerate prescribed diet with <5% overt s/s of aspiration/ dysphagia with use of compensatory swallowing strategies and minimal cues.- CONTINUE (ST recommends regular solids and thin liquids or Pt tolerance) STG 2: Pt will participate in a MBS in order to guide POC and further analyze pharyngeal phase of the swallow. - MET STG 3: Pt will complete hyolaryngeal strengthening exercises for improved pharyngeal phase of swallow with minimal cueing with 90% accuracy.- CONTINUE NEW GOAL STG 4: Pt will tolerate applications of NMES for improved swallow function as evidenced by increased toleration of least restrictive PO diet consistencies. Long-term Goals LTG 1: Patient will consume safest and most efficient least restrictive diet with no clinical s/s of aspiration or dysphagia 100% of the time in order to meet primary nutrition/ hydration needs.
--- NOTE | 2024-01-26 10:54 | ST.IPDYTX ---
Visit Care Team Role Provider Type Loree Pozo MD Attending Provider Physician Family Provider Primary Care Provider Referring Provider Specialty: Family Practice Obstetrics Address: [address] [place] [address], [phone] Email: [email or web address] LEAN MANUFACTURING ENGINEER Dysphagia Treatment LEAN MANUFACTURING ENGINEER Dysphagia Treatment Start: 08/25/23 09:28 Freq: Status: Active Protocol: Document 01/26/24 10:53 MA (Rec: 01/26/24 10:54 MA [id number]) Dysphagia Treatment Session Time Visit Start Time 10:30 Visit Stop Time 11:10 Total Visit Minutes 40 Visit Information Visit Number 16 Plan of Care Dates 11/17/23-02/17/24 Setting Assessment Location Outpatient Care Next Note Type Next Note Type Treatment Note Patient Information Subjective Observations Pt arrived to therapy on time. Pt reports no changes to swallow. He does state that after he has the NMES his swallow feels better. He also states he has a GI appointment on January 27. Treatment Liquids Trialed Thin (IDDSI 0) Solids Trialed Soft & Bite-sized (IDDSI 6), Regular (IDDSI 7) Administration Type Self-Feeding Oral Strategies Upright at 90 degrees, Alternate Liquids/Solids Pharyngeal Strategies Effortful Swallow Treatment Activities Neuromuscular electrical stimulation (NMES), PO trials, hyolaryngeal swallow exercises The IDDSI Framework Protocol: IDDSI.1 Assessment Patient Response to Treatment Excellent Rehab Potential Excellent Assessment of Improvement Pt participated in NMES in conjunction with hyolaryngeal strengthening exercises and PO trials of regular and soft solids and thin liquids. ST placed electrodes in the 3h position with Pt tolerating stim at a level 8.0mA. Pt consumed ethan crackers and diced pears with 7 oz of thin juice via cup. For ethan crackers and pears Pt demonstrated adequate bite size and rate, prolonged mastication however adequate bolus formation and control, piecemeal deglutition, suspected delay in swallow, no overt s/s of aspiration. For thin liquids no overt s/s of aspiration. Unable to comment on pharyngeal phase of the swallow given placement of electrodes. Pt completed 10 reps of swallow exericses including Kayla, Natalie, and effortful swallow. ST encouraged Pt to continue to practice exercises at home, including CTAR/Shaker exercise . Pt reports he has been completing exercises at home without difficulties. ST recommends continuation of soft solids and thin liquids at home or as best tolerated. Recommendations Liquids Order Thin (IDDSI 0) Diet Order Soft & Bite-sized (IDDSI 6) Medication Recommendations As Tolerated Additional Dietary Needs Reminders to Use Strategies Aspiration Precautions Recommended Precautions Upright at 90 Degrees, Alternate Liquids/Solids,Small Bites/Sips,Effortful Swallow Treatment Plan Appropriate for Continued Therapy Yes Therapy Recommendations Continue current treatment plan Dysphagia Goals STG 1: Pt will tolerate prescribed diet with <5% overt s/s of aspiration/ dysphagia with use of compensatory swallowing strategies and minimal cues.- CONTINUE (ST recommends regular solids and thin liquids or Pt tolerance) STG 2: Pt will participate in a MBS in order to guide POC and further analyze pharyngeal phase of the swallow. - MET STG 3: Pt will complete hyolaryngeal strengthening exercises for improved pharyngeal phase of swallow with minimal cueing with 90% accuracy.- CONTINUE NEW GOAL STG 4: Pt will tolerate applications of NMES for improved swallow function as evidenced by increased toleration of least restrictive PO diet consistencies. Long-term Goals LTG 1: Patient will consume safest and most efficient least restrictive diet with no clinical s/s of aspiration or dysphagia 100% of the time in order to meet primary nutrition/ hydration needs.
--- NOTE | 2024-02-02 12:16 | ST.IPDYTX ---
Visit Care Team Role Provider Type Loree Pozo MD Attending Provider Physician Family Provider Primary Care Provider Referring Provider Specialty: Family Practice Obstetrics Address: [address] [place] [address], [address] Email: [email or web address] PHARMACY OPERATIONS SPECIALIST Dysphagia Treatment PHARMACY OPERATIONS SPECIALIST Dysphagia Treatment Start: 08/25/23 09:28 Freq: Status: Active Protocol: Document 02/02/24 12:13 MA (Rec: 02/02/24 12:15 MA [id number]) Dysphagia Treatment Session Time Visit Start Time 12:00 Visit Stop Time 12:40 Total Visit Minutes 40 Visit Information Visit Number 17 Plan of Care Dates 11/17/23-02/17/24 Setting Assessment Location Outpatient Care Next Note Type Next Note Type Treatment Note Patient Information Identification Type Name Subjective Observations Pt arrived to therapy on time. Pt reports no changes to swallow. He does state that after he has the NMES his swallow feels better. He also states he has a an endoscopy with GI scheduled for March 05. Treatment Liquids Trialed Thin (IDDSI 0) Solids Trialed Soft & Bite-sized (IDDSI 6), Regular (IDDSI 7) Administration Type Self-Feeding Oral Strategies Upright at 90 degrees, Alternate Liquids/Solids Pharyngeal Strategies Effortful Swallow Treatment Activities Neuromuscular electrical stimulation (NMES), PO trials, hyolaryngeal swallow exercises The IDDSI Framework Protocol: IDDSI.1 Assessment Patient Response to Treatment Excellent Rehab Potential Excellent Assessment of Improvement Pt participated in NMES in conjunction with hyolaryngeal strengthening exercises and PO trials of regular and soft solids and thin liquids. ST placed electrodes in the 3h position with Pt tolerating stim at a level 8.0mA. Pt consumed ethan crackers and pudding with 4 oz of thin juice via cup. For ethan crackers and pudding Pt demonstrated adequate bite size and rate, prolonged mastication however adequate bolus formation and control, piecemeal deglutition, suspected delay in swallow, no overt s/s of aspiration. For thin liquids no overt s/s of aspiration. Unable to comment on pharyngeal phase of the swallow given placement of electrodes. Pt completed 10 reps of swallow exericses including Kayla, Natalie, and effortful swallow. ST encouraged Pt to continue to practice exercises at home, including CTAR/Shaker exercise . Pt reports he has been completing exercises at home without difficulties. ST recommends continuation of soft solids and thin liquids at home or as best tolerated. Recommendations Liquids Order Thin (IDDSI 0) Diet Order Soft & Bite-sized (IDDSI 6) Medication Recommendations As Tolerated Additional Dietary Needs Reminders to Use Strategies Aspiration Precautions Recommended Precautions Upright at 90 Degrees, Alternate Liquids/Solids,Small Bites/Sips,Effortful Swallow Treatment Plan Appropriate for Continued Therapy Yes Therapy Recommendations Continue current treatment plan Dysphagia Goals STG 1: Pt will tolerate prescribed diet with <5% overt s/s of aspiration/ dysphagia with use of compensatory swallowing strategies and minimal cues.- CONTINUE (ST recommends regular solids and thin liquids or Pt tolerance) STG 2: Pt will participate in a MBS in order to guide POC and further analyze pharyngeal phase of the swallow. - MET STG 3: Pt will complete hyolaryngeal strengthening exercises for improved pharyngeal phase of swallow with minimal cueing with 90% accuracy.- CONTINUE NEW GOAL STG 4: Pt will tolerate applications of NMES for improved swallow function as evidenced by increased toleration of least restrictive PO diet consistencies. Long-term Goals LTG 1: Patient will consume safest and most efficient least restrictive diet with no clinical s/s of aspiration or dysphagia 100% of the time in order to meet primary nutrition/ hydration needs.
--- NOTE | 2024-02-09 10:53 | ST.IPDYTX ---
Visit Care Team Role Provider Type Loree Pozo MD Attending Provider Physician Family Provider Primary Care Provider Referring Provider Specialty: Family Practice Obstetrics Address: [address] [place] [address], [address] Email: [email or web address] NAIL TECH Dysphagia Treatment NAIL TECH Dysphagia Treatment Start: 08/25/23 09:28 Freq: Status: Active Protocol: Document 02/09/24 10:44 MA (Rec: 02/09/24 10:46 MA [id number]) Dysphagia Treatment Session Time Visit Start Time 10:30 Visit Stop Time 11:00 Total Visit Minutes 30 Visit Information Visit Number 18 Plan of Care Dates 11/17/23-02/17/24 Setting Assessment Location Outpatient Care Visit Type Note Type Treatment Note Next Note Type Next Note Type Treatment Note Patient Information Identification Type Name Subjective Observations Pt arrived to therapy on time. Pt reports no changes to swallow. He does state that after he has the NMES his swallow feels better. He also states he has a an endoscopy with GI scheduled for March 05. Treatment Liquids Trialed Thin (IDDSI 0) Solids Trialed Soft & Bite-sized (IDDSI 6), Regular (IDDSI 7) Administration Type Self-Feeding Oral Strategies Upright at 90 degrees, Alternate Liquids/Solids Pharyngeal Strategies Effortful Swallow Treatment Activities Neuromuscular electrical stimulation (NMES), PO trials, hyolaryngeal swallow exercises The IDDSI Framework Protocol: IDDSI.1 Assessment Patient Response to Treatment Excellent Rehab Potential Excellent Assessment of Improvement Pt participated in NMES in conjunction with hyolaryngeal strengthening exercises and PO trials of regular and soft solids and thin liquids. ST placed electrodes in the 3h position with Pt tolerating stim at a level 8.0mA. Pt consumed cheese crackers and pudding with 4 oz of thin juice via cup. For cheese crackers and pudding Pt demonstrated adequate bite size and rate, prolonged mastication however adequate bolus formation and control, piecemeal deglutition, suspected delay in swallow, no overt s/s of aspiration. For thin liquids no overt s/s of aspiration. Unable to comment on pharyngeal phase of the swallow given placement of electrodes. Pt completed 10 reps of swallow exericses including Kayla, Natalie, and effortful swallow. ST encouraged Pt to continue to practice exercises at home, including CTAR/Shaker exercise . Pt reports he has been completing exercises at home without difficulties. ST recommends continuation of soft solids and thin liquids at home or as best tolerated. Recommendations Liquids Order Thin (IDDSI 0) Diet Order Soft & Bite-sized (IDDSI 6) Medication Recommendations As Tolerated Additional Dietary Needs Reminders to Use Strategies Aspiration Precautions Recommended Precautions Upright at 90 Degrees, Alternate Liquids/Solids,Small Bites/Sips,Effortful Swallow Treatment Plan Appropriate for Continued Therapy Yes Therapy Recommendations Continue current treatment plan Dysphagia Goals STG 1: Pt will tolerate prescribed diet with <5% overt s/s of aspiration/ dysphagia with use of compensatory swallowing strategies and minimal cues.- CONTINUE (ST recommends regular solids and thin liquids or Pt tolerance) STG 2: Pt will participate in a MBS in order to guide POC and further analyze pharyngeal phase of the swallow. - MET STG 3: Pt will complete hyolaryngeal strengthening exercises for improved pharyngeal phase of swallow with minimal cueing with 90% accuracy.- CONTINUE NEW GOAL STG 4: Pt will tolerate applications of NMES for improved swallow function as evidenced by increased toleration of least restrictive PO diet consistencies. Long-term Goals LTG 1: Patient will consume safest and most efficient least restrictive diet with no clinical s/s of aspiration or dysphagia 100% of the time in order to meet primary nutrition/ hydration needs.
--- NOTE | 2024-02-09 12:40 | ST.IPDYTX ---
Visit Care Team Role Provider Type Loree Pozo MD Attending Provider Physician Family Provider Primary Care Provider Referring Provider Specialty: Family Practice Obstetrics Address: [address] [place] [address], [id number] Email: [email or web address] PATIENT INTAKE COORDINATOR Dysphagia Treatment PATIENT INTAKE COORDINATOR Dysphagia Treatment Start: 08/25/23 09:28 Freq: Status: Active Protocol: Document 02/09/24 10:44 MA (Rec: 02/09/24 10:46 MA [id number]) Dysphagia Treatment Session Time Visit Start Time 10:30 Visit Stop Time 11:00 Total Visit Minutes 30 Visit Information Visit Number 18 Plan of Care Dates 11/17/23-02/17/24 Setting Assessment Location Outpatient Care Visit Type Note Type Treatment Note Next Note Type Next Note Type Treatment Note Patient Information Identification Type Name Subjective Observations Pt arrived to therapy on time. Pt reports no changes to swallow. He does state that after he has the NMES his swallow feels better. He also states he has a an endoscopy with GI scheduled for March 05. Today is patient's last session d/t him reaching the recommended number of sessions for NMES with no significant changes to swallow and ST suspecting d/t a GI issue vs swallow. Pt verbalized understanding. Treatment Liquids Trialed Thin (IDDSI 0) Solids Trialed Soft & Bite-sized (IDDSI 6), Regular (IDDSI 7) Administration Type Self-Feeding Oral Strategies Upright at 90 degrees, Alternate Liquids/Solids Pharyngeal Strategies Effortful Swallow Treatment Activities Neuromuscular electrical stimulation (NMES), PO trials, hyolaryngeal swallow exercises The IDDSI Framework Protocol: IDDSI.1 Assessment Patient Response to Treatment Excellent Rehab Potential Excellent Assessment of Improvement Pt participated in NMES in conjunction with hyolaryngeal strengthening exercises and PO trials of regular and soft solids and thin liquids. ST placed electrodes in the 3h position with Pt tolerating stim at a level 8.0mA. Pt consumed cheese crackers and pudding with 4 oz of thin juice via cup. For cheese crackers and pudding Pt demonstrated adequate bite size and rate, prolonged mastication however adequate bolus formation and control, piecemeal deglutition, suspected delay in swallow, no overt s/s of aspiration. For thin liquids no overt s/s of aspiration. Unable to comment on pharyngeal phase of the swallow given placement of electrodes. Pt completed 10 reps of swallow exericses including Kayla, Natalie, and effortful swallow. ST encouraged Pt to continue to practice exercises at home, including CTAR/Shaker exercise . Pt reports he has been completing exercises at home without difficulties. ST recommends regular solids, or as tolerated, and thin liquids at home or as best tolerated. ST recommends Pt discharge at this time d/t reaching number of recommended NMES sessions and meeting goals, however no signficant changes to swallow. ST recommends he f/u with GI. Recommendations Liquids Order Thin (IDDSI 0) Diet Order Regular (IDDSI 7) Medication Recommendations As Tolerated Additional Dietary Needs Reminders to Use Strategies Aspiration Precautions Recommended Precautions Upright at 90 Degrees, Alternate Liquids/Solids,Small Bites/Sips,Effortful Swallow Treatment Plan Appropriate for Continued Therapy Yes Therapy Recommendations Continue current treatment plan Dysphagia Goals STG 1: Pt will tolerate prescribed diet with <5% overt s/s of aspiration/ dysphagia with use of compensatory swallowing strategies and minimal cues.- MET (ST recommends regular solids and thin liquids or Pt tolerance) STG 2: Pt will participate in a MBS in order to guide POC and further analyze pharyngeal phase of the swallow. - MET STG 3: Pt will complete hyolaryngeal strengthening exercises for improved pharyngeal phase of swallow with minimal cueing with 90% accuracy.- MET NEW GOAL STG 4: Pt will tolerate applications of NMES for improved swallow function as evidenced by increased toleration of least restrictive PO diet consistencies. - MET Long-term Goals LTG 1: Patient will consume safest and most efficient least restrictive diet with no clinical s/s of aspiration or dysphagia 100% of the time in order to meet primary nutrition/ hydration needs.- MET Referrals/Other Recommended Referrals GI Consult
--- NOTE | 2024-02-09 12:40 | ST.OPDS ---
Visit Care Team Role Provider Type Loree Pozo MD Attending Provider Physician Family Provider Primary Care Provider Referring Provider Address: [facility] [facility] [place], [address] ST recommends Pt be discharged from ST this date d/t Pt reaching number of recommended NMES sessions with no significant changes to swallow with ST suspecting d/t GI issue vs oropharyngeal swallow. Goals updated in last treatment note.
== END 2024-02-10 10:57 | disposition home or self-care (01) ==
LOC: SP 10:30
PROVIDERS: Family Provider Student in an Organized Health Care Education/Training Program; PCP Student in an Organized Health Care Education/Training Program; Referring Provider Student in an Organized Health Care Education/Training Program; Visit Provider Student in an Organized Health Care Education/Training Program
DX: K22.4 Dyskinesia of esophagus (principal)
CPT/HCPCS: 92526; 92610